=== PATIENT | male | born 1940 | race Caucasian/White ===

== ENCOUNTER → 2016-08-05 | Outpatient (CLI) | payer OTHER, BC ==
[~2016-08-05] MED LIST: ASPCH81 PO; CHOL100010 PO; DIPH50TA10 PO; LORA-741 PO; METR1GEL3; MULT-506 PO; NAPR1TAB9 PO; PSYL55.43; PYRI500T3 PO; TAMS0.4C38 PO; TTR500 PO; WARF-246 PO; WARF7.5T4 PO
--- NOTE | 2016-08-05 14:53 | DIAGNOSTIC IMAGING REPORT ---
SACRUM COCCYX MIN 2 VIEWS CLINICAL HISTORY: W07.XXXA, M53.3 pain. Trauma. COMPARISON STUDY: None FINDINGS: Nondisplaced cortical fracture mid sacrum as well as the sacral coccygeal junction. Sacral foramina are symmetric. Sacroiliac joints are unremarkable. IMPRESSION: Nondisplaced cortical fractures of the mid sacrum as well as sacrococcygeal junction. Electronically signed by: Anish Mallory M.D. 08/05/2016 2:52 PM Dictated Date/Time: 08/05/2016 2:50 PM
== END | disposition home or self-care (01) ==
LOC: C.RAD1850 14:34
PROVIDERS: ATTEND Nurse Practitioner Family
DX: S32.19XA Other fracture of sacrum, initial encounter for closed fracture (principal); W07.XXXA Fall from chair, initial encounter

== ENCOUNTER → 2017-05-16 | Outpatient (CLI) | payer OTHER, BC ==
--- NOTE | 2017-05-16 15:26 | MAMMOGRAPHY REPORT ---
MALE UNILATERAL LEFT DIGITAL SCREENING MAMMOGRAM TOMOSYNTHESIS WITH CAD: 05/16/2017 CLINICAL HISTORY: Routine screening. Patient has no complaints. TECHNIQUE: Breast tomosynthesis in addition to standard 2D mammography was performed. Current study was also evaluated with a Computer Aided Detection (CAD) system. COMPARISON: Comparison is made to exams dated: 08/30/2015 mammogram, 08/23/2014 mammogram, 07/12/2013 ma mmogram, 07/08/2012 mammogram, 07/08/2011 mammogram, and 07/02/2010 mammogram - [facility] er. BREAST COMPOSITION: The tissue of the left breast is predominantly fatty. FINDINGS: The patient is status post right mastectomy. There are no suspicious masses, calcificatio ns, or areas of architectural distortion noted in the left breast. There has been no significant int erval change compared to prior exams. IMPRESSION: ACR BI-RADS CATEGORY 1: NEGATIVE There is no mammographic evidence of malignancy in the left breast. A 1 year screening mammogram is r ecommended. The patient will receive written notification of the results. Approximately 10% of breast cancers are not detected with mammography. A negative mammographic report should not delay biopsy if a clinically suggestive mass is present. Heather Santiago M.D. ah/:05/16/2017 12:24:24 Icd 9 Coder: Ruby MANZO(Dakota)(M), [facility] letter sent: Normal 1/2 BI-RADS Code: ACR BI-RADS Category 1: Negative
== END | disposition home or self-care (01) ==
LOC: C.MAMM 09:33
PROVIDERS: ATTEND Internal Medicine Hematology & Oncology
DX: Z12.31 Encounter for screening mammogram for malignant neoplasm of breast (principal); Z90.11 Acquired absence of right breast and nipple

== ENCOUNTER 2020-06-07 09:26 | Inpatient (IN) ==
[2020-06-07] MEDS ORDERED: METOPROLOL TARTRATE 1 MG/ML VIAL IV ONE ×2 (09:32→10:18)
[2020-06-07] MEDS ORDERED: NITROGLYCERIN 2% OINTMENT 30GM TUBE EXT STA (09:34)
[2020-06-07] MEDS ORDERED: NITROGLYCERIN 2% OINTMENT 30GM TUBE ONE (09:35)
[2020-06-07] MEDS ORDERED: FUROSEMIDE 40 MG/4 ML VIAL IV ONE (09:35)
[2020-06-07 09:47] LABS: Hematocrit (blood only) 39.9 % (42-52); Hemoglobin 13.7 g/dL (14.0-18.0); Mean Corpuscular Hgb Conc 34.3 g/dL (32-36); Mean Platelet Volume 10.5 fL (7.4-10.4); Platelet Count 162 K/uL (130-400); RDW Coefficient of Variation 14.9 % (11.5-14.5); RDW Standard Deviation 55.7 fL (36.4-46.3); Red Blood Count 3.91 M/uL (4.7-6.1); White Blood Count 8.93 K/uL (4.8-10.8)
--- NOTE | 2020-06-07 09:53 | XRay Report ---
XR chest 1V portable HISTORY: 79 years-old Male Dysrhythmia acute shortness of breath COMPARISON: Chest radiographs 05/02/2020 TECHNIQUE: Portable AP view of the chest FINDINGS: Cardiomegaly. Right subclavian Eyiypa-b-Ywxc catheter distal tip terminates within the region of the right atrium. No pneumothorax. Interval development of extensive airspace opacities throughout the ri ght lung with small right pleural effusion. Reticular nodular interstitial opacities are redemonstrat ed bilaterally. Mild left lung base airspace opacities. Degenerative changes of the shoulders and spi ne. IMPRESSION: 1. Cardiomegaly with interval development of asymmetric multifocal airspace opacities throughout the right lung suggestive of asymmetric pulmonary edema versus pneumonia. 2. Bilateral reticular nodular opacities redemonstrated. 3. Small right pleural effusion. ACT 112: Negative or not required by law. The above report was generated using voice recognition software. It may contain grammatical, syntax o r spelling errors. Electronically signed by: Chucho Arredondo M.D. 06/07/2020 9:51 AM
[2020-06-07] MEDS ORDERED: OPTIRAY 320 125ml IV ONE (09:56)
[2020-06-07 10:05] LABS: Albumin Level 2.3 gm/dl (3.4-5.0); BUN Creatinine Ratio 33.9 (10-20); Calcium 9.7 mg/dl (8.5-10.1); Creatinine Clr Calc Pharmacy 35.7 ml/min; Est GFR (African American) 47.2; Est GFR (Non-African American) 40.7; Magnesium 2.4 mg/dl (1.8-2.4); Potassium 4.2 mmol/L (3.5-5.1)
[2020-06-07 10:09] LABS: Basophils # (auto) 0.02 K/uL (0-0.2); Basophils % (auto) 0.2 %; Echinocytes 1+; Eosinophils # (auto) 0.04 K/uL (0-0.5); Eosinophils % (auto) 0.4 %; Immature Granulocytes # (auto) 0.74 K/uL (0.00-0.02); Immature Granulocytes % (auto) 8.3 %; Lymphocytes # (auto) 0.13 K/uL (1.2-3.4); Lymphocytes % (auto) 1.5 %; Monocytes # (auto) 0.02 K/uL (0.11-0.59); Monocytes % (auto) 0.2 %; Neutrophils # (auto) 7.98 K/uL (1.4-6.5); Neutrophils % (auto) 89.4 %; Toxic Granulation 1+; Toxic Vacuolation 1+
[2020-06-07 10:18] LABS: Albumin Globulin Ratio 0.5 (0.9-2); Bilirubin,Total 0.8 mg/dl (0.2-1); Globulin 4.3 gm/dl (2.5-4.0); Thyroid Stimulating Hormone 0.42 uIu/ml (0.300-4.500); Total Protein 6.6 gm/dl (6.4-8.2); Troponin I 0.106 ng/ml (0-0.045)
--- NOTE | 2020-06-07 10:22 | CT Scan Report ---
CT angio chest PE protocol CT DOSE: 292.55 mGy.cm HISTORY: 79 years-old Male with PE. Acute chest pain with shortness of breath. History of breast ca ncer with recent chemotherapy. Hypoxia with atrial fibrillation. History of metastatic breast cancer. TECHNIQUE: Multiple CTA images of the chest were obtained after the intravenous administration of Opt iray 320. Coronal and sagittal MIPS were obtained from the axial data set and were submitted for rev iew. All measurements were obtained according to NASCET criteria. A dose lowering technique was util ized adhering to the principles of ALARA. COMPARISON: Chest radiograph of same day, chest CT 01/05/2020 FINDINGS: CTA: Moderate cardiomegaly. No pericardial effusion. Mild coronary artery calcifications. Thoracic aorta i s not well opacified and therefore difficult to evaluate. No thoracic aortic aneurysm. The pulmonary arterial tree is opacified to the level of the proximal subsegmental branches. The subsegmental branc hes are not well opacified secondary to contrast bolus timing. No filling defects identified. Reflux of contrast into the IVC and hepatic veins. Right subclavian Bqjykd-r-Kity catheter distal tip termin ates within the SVC. CT CHEST: Unremarkable thyroid. Enlarged right hilar lymph nodes measure up to 12 mm. Trace left and small righ t pleural effusions. Multifocal right greater than left bilateral groundglass and alveolar opacities are noted with areas of intralobular septal thickening most pronounced in the right lung. Chronic sub pleural reticulation suggests fibrosis. 10 mm solid nodule of the left upper lobe on image 2 please i s unchanged in size. 1.5 cm subpleural nodule of the left lower lobe on image 154 previously measured 1.2 cm. The additional bilateral pulmonary metastasis are mostly obscured by the aforementioned airs pace disease. Central airways are patent. Mild wall thickening of the distal esophagus. No acute process of the imaged upper abdomen. No acute fracture. Slightly increased size of the scattered sclerotic lesions of the thoracic spine. The 10 mm lesion at T9 previously measured approximately 6-7 mm. The 5 mm T3 lesion previously measured 4 mm. IMPRESSION: 1. Cardiomegaly without pulmonary emboli. 2. Multifocal right greater than left groundglass and consolidative opacities suggests multifocal pne umonia. A component of superimposed asymmetric right-sided pulmonary edema would be difficult to excl ude. 3. Small right and trace left pleural effusions. 4. Pulmonary metastasis redemonstrated. 5. Mild progression of the presumed sclerotic metastasis within the thoracic spine. 6. Mild right hilar adenopathy. ACT 112: Negative or not required by law. The above report was generated using voice recognition software. It may contain grammatical, syntax o r spelling errors. Electronically signed by: Chucho Arredondo M.D. 06/07/2020 10:21 AM
[2020-06-07 10:30] LABS: Base Excess ABG -6.9 mEq/L (-9-1.8); HCO3 ABG 18 mmol/L (19-24); Oxygen Saturation ABG 95.2 % (90-95); PCO2 ABG 36 mmHg (35-46); PO2 ABG 75 mmHg (80-95); pH ABG 7.33 (7.35-7.45)
[2020-06-07 10:34] LABS: Allen Test Pos (Pos)
[2020-06-07 10:47] LABS: INR 1.1 (0.9-1.1); Partial Thromboplastin Time 27.5 Seconds (21.0-31.0)
[2020-06-07] MEDS ORDERED: STAT IV Infusion **Titration per Protocol STA ×3 (10:48→14:49)
[2020-06-07] MEDS ORDERED: dilTIAZem HCl 5 MG/ML 5 ML VIAL IV STA (10:48)
[2020-06-07] MEDS ORDERED: dilTIAZem HCL 125 MG in DEXTROSE 5% 100 ML IV SCH (11:00)
[2020-06-07] MEDS ORDERED: CEFEPIME 2,000 MG in SYRINGE 0 ML IV STA (11:44)
[2020-06-07] MEDS ORDERED: DOXYCYCLINE HYCLATE 100 MG in DEXTROSE 5% 100 ML IV STA (11:45)
[2020-06-07] MEDS ORDERED: VANCOMYCIN HCL 1,250 MG in SODIUM CHLORIDE 0.9% 500 ML IV ONE (11:45)
[2020-06-07] MEDS ORDERED: VANCOMYCIN CONSULT ACTIVE PRN (11:45)
[2020-06-07] MEDS ORDERED: DIGOXIN 500 MCG/2 ML AMP IV ONE (11:47)
--- NOTE | 2020-06-07 11:49 | History & Physical Report ---
Date of Service June 07, 2020 Assessment & Plan (1) Sepsis: Admit to ICU - discussed with Dr. Moore Source multifocal pneumonia. Lactate pending Broad-spectrum antibiotics with vancomycin, cefepime and doxycycline Follow-up blood and sputum cultures (2) Acute respiratory failure with hypoxia: BiPAP 15/10 with FiO2 100% with O2 sats around 90%. Appears stable for the last hour in the emergency room however no significant improvement with improved heart rate and tachypnea concerning for impending respiratory failure requiring intubation. Extensive family discussion with his and the patient and he wishes to be intubated if required therefore will admit to ICU for close monitoring. (3) Multifocal pneumonia: Covid, influenza and RSV PCR negative Broad-spectrum antibiotics with vancomycin, cefepime and doxycycline Urine Legionella antigen pending Sputum culture pending MRSA nasal swab pending (4) Atrial fibrillation with RVR: No significant change after metoprolol 10 mg IV and diltiazem 15 mg IV given in ER. Now improved with diltiazem 10 mg/hr IV drip and digoxin 500 mcg IV Continue metoprolol 5 mg IV every 4 hourly with hold parameters Continue diltiazem IV drip. Will defer continuation of digoxin to ICU team Start IV heparin standard without bolus for anticoagulation (5) Acute congestive heart failure: Clinically hypervolemic suspect due to rapid ventricular rate Lasix 40 mg IV given in ER Discontinue nitro patch Monitor I's and O's, daily weights Will defer further diuretics to ICU team (6) Benign localized prostatic hyperplasia with lower urinary tract symptoms (LUTS): Velazquez catheter Continue tamsulosin 0.4 mg p.o. daily (7) Metastatic cancer: Currently undergoing chemotherapy with Doxil. Last taken on June 01, 2020. (8) Hydronephrosis: Chronic moderatesevere left-sided hydronephrosis. If renal function not improving consider reimaging. (9) DVT prophylaxis: IV heparin drip as above Admission and Anticipated Discharge Date Admission Date: June 07, 2020 History of Present Illness Chief Complaint: Shortness of breath, Atrial fibrillation with rapid ventricular rate Primary Care Provider: Earle Mata Carlos uAgust is an 79-year-old male with metastatic breast cancer on Doxil who presents to the ER via EMS with fatigue, increasing shortness of breath for the last 3 days and with associated mild chest pain. His also notes he has been having a cough for the last month and went to see a pulmonology Dr Pool on May 17 and was given a course of prednisone which he finished without much change in his cough. She denies his cough has become any worse. No fevers or chills. With regards to his metastatic cancer he underwent mastectomy with adjuvant c hemotherapy and radiation in 2006. Subsequently had 5 years of tamoxifen. Recently diagnosed metastatic cancer of the masses in his left breast were biopsied in September 2019. Started on Doxil in January after a cutaneous rash developed after Abraxane chemotherapy. Last dose of Doxil 06/01/2019. He has had 1 of 2 doses COVID-19 vaccination. In the ER he was noted to be in atrial fibrillation with rapid ventricular rate. This was treated with IV metoprolol and diltiazem with reduction of his heart rate from 190s down to 110s. Blood pressure remained stable. Suspected to be hypokalemic and given Lasix 40 mg IV and Nitropaste. He was significantly hypoxic and started on BiPAP 10/ with FiO2 100% and O2 sats 90%. He was referred to medicine for atrial fibrillation with RVR, CHF, hypoxia on BiPAP. Allergies Allergy/AdvReac Type Severity Reaction Status Date / Time mold Allergy Intermediate HIVES Verified 06/07/20 10:31 pollen extracts Allergy Intermediate ITCHING Verified 06/07/20 10:31 No Known Drug Allergies Allergy Verified 06/07/20 10:31 Home Medications Medication Instructions Recorded Confirmed Type lorazepam 0.5 mg tablet 0.5 mg PO DAILY PRN 10/06/19 06/07/20 History multivitamin 1 tab PO DAILY 10/06/19 06/07/20 History naproxen sodium 220 mg capsule 220 mg PO BID PRN 10/06/19 06/07/20 History psyllium husk 3.4 gram/5.4 gram 1 tsp PO QAM 10/06/19 06/07/20 History oral powder tamsulosin 0.4 mg capsule 0.4 mg PO DAILY 10/06/19 06/07/20 History cholecalciferol (vitamin D3) 25 mcg PO DAILY 10/11/19 06/07/20 History [Vitamin D3] vitamin B complex 1 cap PO DAILY 10/11/19 06/07/20 History albuterol sulfate 90 mcg/actuation 1 inh INHALATION QID PRN #18 g 05/17/20 06/07/20 Rx aerosol inhaler gabapentin 300 mg capsule 300 mg PO TID 05/17/20 06/07/20 History prednisone 10 mg tablet See Rx Instructions PO DAILY #100 05/17/20 06/07/20 Rx tab dorzolamide-timolol 1 drp OPB BID 06/07/20 06/07/20 History Past Med/Surg History Medical History Benign localized prostatic hyperplasia with lower urinary tract symptoms (LUTS) Breast cancer in male RIGHT, CHEMO AND RADIATION PREVIOUSLY Breast cancer, male Chest x-ray abnormality Cough Metastatic cancer Nephrolithiasis Surgical History H/O inguinal hernia repair X2 BEFORE 1986 H/O mastectomy RIGHT BREAST 2006--PORT PLACEMENT WELL FOR CHEMO History of hernia surgery Port-A-Cath in place (10/14/19) Port placement. Dr. Ford 10/14/2019 Family History Grandfather (Maternal) Cancer Other Allergies Emphysema, unspecified Heart disease Denies family history of Tuberculosis Diabetes Lung disease Asthma Social History Smoking Status: Former smoker Age Quit Using Tobacco: 48; Years Smoked: 30; Second Hand Exposure: No; Do You Dip or Chew Tobacco: No; Tobacco Cessation Education Requested by Patient: No Hx Alcohol Use: Yes Alcohol type: hard liquor Hx Substance Use: Yes Substance Use Type Other:: in the 1970s Preferred Language: Sami Communication Ability: Effective Medical Office Technologist Required: No Beliefs That Will Affect Care: None marital status: kristi Current Living Situation: Spouse current occupational status: retired Other Information That Helps Us Care for You: No Feels Safe at Home: Yes Safety Concerns: Feels Safe At This Time Assistive Devices: Cane and Oxygen - Continuous Review of Systems Review of Systems: All systems reviewed & are unremarkable except as noted in HPI & below Physical Exam Constitutional: + acute distress (Respiratory) and + ill appearing; + not well nourished Eyes: PERRL, conjunctivae normal, anicteric sclerae ENMT: Mouth: + dry oral mucous membranes Neck: trachea midline Respiratory: + respiratory distress, + labored breathing, + retractions, + uses accessory muscles and + tachypneic; expiratory phase not prolonged Auscultation: + rhonchi (Throughout); no wheezes Cardiovascular: Rate/Rhythm: + tachycardic and + irregularly irregular Heart Sounds: no murmur Vessels: no JVD Gastrointestinal (Abdomen): normal bowel sounds, soft, nontender, no hepatosplenomegaly Skin: no rashes, warm and dry (No areas of cellulitis) Neurologic: moves all extremities and awake; not confused Speech / Cognition: normal speech Psychiatric: A+Ox3, euthymic affect Results & Data Results & Data ([facility]) Vital Signs (Past 12 Hours) Vital Signs Temp Pulse Pulse Resp BP BP Pulse Ox 06/07/20 11:38 166 H 37 H 92 06/07/20 11:25 149 H 45 H 106/71 88 L 06/07/20 11:22 163 H 43 H 138/73 87 L 06/07/20 11:20 157 H 46 H 88 L 06/07/20 11:16 164 H 40 H 151/83 H 87 L 06/07/20 11:10 157 H 42 H 88 L 06/07/20 11:01 160 H 42 H 120/95 92 06/07/20 11:00 169 H 40 H 87 L 06/07/20 10:36 150 H 20 117/81 93 06/07/20 10:22 168 H 18 140/102 H 93 06/07/20 10:07 144 H 20 127/79 94 06/07/20 09:41 36.9 C 160 H 32 H 127/92 70 L 06/07/20 09:40 166 H 36 H 94 06/07/20 09:34 70 L Diagnostic Findings XR chest 1V portable IMPRESSION: 1. Cardiomegaly with interval development of asymmetric multifocal airspace opacities throughout the right lung suggestive of asymmetric pulmonary edema versus pneumonia. 2. Bilateral reticular nodular opacities redemonstrated. 3. Small right pleural effusion. CT angio chest PE protocol IMPRESSION: 1. Cardiomegaly without pulmonary emboli. 2. Multifocal right greater than left groundglass and consolidative opacities suggests multifocal pneumonia. A component of superimposed asymmetric right- sided pulmonary edema would be difficult to exclude. 3. Small right and trace left pleural effusions. 4. Pulmonary metastasis redemonstrated. 5. Mild progression of the presumed sclerotic metastasis within the thoracic spine. 6. Mild right hilar adenopathy. Medications Administered ER medications given: Metoprolol 10 mg IV, 5 mg IV Nitro 2% paste 0.5 inch Lasix 40 mg IV Diltiazem 50 mg IV Digoxin 500 mcg IV ECG Indication: chest pain and SOB/dyspnea Rate (beats per minute): 195 Rhythm: atrial fibrillation Findings: + other (Nonspecific ST abnormality) Comparison ECG Date: from (October 11, 2019) Change: the following changes noted (Atrial fibrillation with RVR is new) Code Status & VTE Plan Code Status Poor prognosis discussed with the patient and his . Discussed high likelihood that patient will deteriorate and currently needing 100% percent oxygen therefore next escalation in care would be intubation if he would want this. The patient indicated he wished to be intubated if he was deteriorate however if he was not improving he would wish to be terminally extubated at that time. DNR in the event of a cardiac arrest. VTE Prophylaxis Plan VTE Prophylaxis will be ordered: Yes Critical Care Time Critical Care Time: Yes Total Critical Care Time: 90 Including management of atrial fibrillation with rapid ventricular rate, multifocal pneumonia, acute respiratory failure, discussions regarding intubation PG Care Time/CCT Total # of Minutes Spent Total Time Spent with Patient: Total time spent is greater than 50% in coordination of care (as documented) at patient's floor/unit and/or counseling patient: Critical Care Time: Yes Total Critical Care Time: 90 Coding Level of Care Code 71492 Initial Inpt Care Lvl 3 Diagnoses Sepsis A41.9 Acute respiratory failure with hypoxia J96.01 Multifocal pneumonia J18.9 Atrial fibrillation with RVR I48.91 Acute congestive heart failure I50.9 Benign localized prostatic hyperplasia with lower urinary tract symptoms (LUTS) N40.1 Metastatic cancer C79.9 Hydronephrosis N13.30 DVT prophylaxis Z29.9 Additional Codes Critical Care Time - Critical Care Time: Yes ([id number])
[2020-06-07] MEDS ORDERED: VANCOMYCIN HCL 1,500 MG in SODIUM CHLORIDE 0.9% 500 ML IV STA (11:55)
[2020-06-07 12:14] LABS: Influenza A virus by PCR Negative (Neg); Influenza B virus by PCR Negative (Neg); RSV by PCR Negative (Neg); SARS CoV2 RNA(COVID-19) InHosp NEGATIVE (Negative)
[2020-06-07 12:18] LABS: Creatine Kinase 45 U/L (39-308)
[2020-06-07 12:35] LABS: C Reactive Protein > 19.00 mg/dl (0-0.29)
--- NOTE | 2020-06-07 13:12 | Critical Care Consultation ---
Date of Consultation June 07, 2020 Assessment & Plan (1) Acute respiratory failure with hypoxia: Reason Critically Ill: 79-year-old male with acute hypoxic respiratory failure with perforated viscus intra-abdominal sepsis and atrial fibrillation with rapid ventricular response PLAN: Neuro: Comfort measures -Dilaudid as needed Resp: Acute hypoxic respiratory failure -Broad-spectrum antibiotics -High flow nasal cannula to minimize intra-abdominal free air -Terminal extubation CV: Atrial fibrillation with rapid ventricular response -Improved with beta-blockade and improvement in hypoxia Fluids/Renal: Acute kidney injury -Gentle hydration ID: Broad-spectrum antibiotics -This will be the extent of our coverage of the perforated viscus GI/Nutrition: Perforated intra-abdominal viscus -Patient and family declined operative intervention Heme: Metastatic breast cancer History upper extremity DVT -Holding heparin as there is no acute venous thromboembolism at this time DVT prophylaxis: Mechanical and pharmacologic prophylaxis contraindicated Endocrine: Vascular access: Peripheral IVs and port Code Status: DNR/DNI Disposition: Comfort measures including antibiotics to treat any infection, I am fearful of a grim prognosis in a matter of hours. Patient exhibits signs of multisystem organ failure. Family present at bedside. I have personally spent 120 minutes of critical care time in the direct management of this patient. This is a life/limb threatening event. This includes time spent evaluating patient, direct bedside care, chart review, placing orders, interpretation of diagnostic studies, discussion with consultants, patient, and/or family members regarding treatment decisions, as well as other required patient management activities. This time is exclusive of all separately billable procedures, and teaching time and separate from and in addition to any other critical care service time. (2) Atrial fibrillation with RVR: (3) Multifocal pneumonia: (4) Sepsis: (5) Metastatic cancer: (6) Breast cancer, male: (7) Perforated abdominal viscus: (8) SAPNA (acute kidney injury): (9) Goals of care, counseling/discussion: History of Present Illness Reason for Consultation: Acute hypoxic respiratory failure Requesting Physician: Yg Elkins Attending Physician: Yg Elkins History of Present Illness Patient is an 79-year-old male with a significant past medical history of metastatic breast cancer who presents today with acute shortness of breath and cough x1 week. In the emergency department he was found to have acute hypoxic respiratory failure and was started on noninvasive ventilation. Was also noted to have acute kidney injury. He was evaluated for admission and felt he would benefit from critical care services as the patient was agreeable with intubation mechanical ventilation should that be required. During my evaluation the patient was saturating in the mid 80s on 100% FiO2 via noninvasive mechanical ventilator and in respiratory distress with tachypnea into the 30s and 40s. Very rapidly we discussed the condition with the patient patient's and he was agreeable with short-term mechanical ventilation should he be improved and did not want tracheostomy or long-term mechanical ventilation beyond 2 weeks. The decision was made to intubate the patient at that time. Chest x-ray following the intubation demonstrated free intra-abdominal air consistent with viscus perforation. In review of the CT scan with radiology there was incidental noting of free air at that time. I discussed this with the patient's , exploratory laparotomy would be of minimal benefit as it will not change the course of his metastatic carcinoma, we will continue broad- spectrum antibiotics proceed with terminal extubation. At this time we are waiting for the daughter to present to bedside prior to extubation as the patient is certainly critically ill and he could ultimately from acute hypoxic respiratory failure in a matter of minutes to hours if he does not have significant improvement. Allergies Allergy/AdvReac Type Severity Reaction Status Date / Time mold Allergy Intermediate HIVES Verified 06/07/20 10:31 pollen extracts Allergy Intermediate ITCHING Verified 06/07/20 10:31 No Known Drug Allergies Allergy Verified 06/07/20 10:31 Home Medications Medication Instructions Recorded Confirmed Type lorazepam 0.5 mg tablet 0.5 mg PO DAILY PRN 10/06/19 06/07/20 History multivitamin 1 tab PO DAILY 10/06/19 06/07/20 History naproxen sodium 220 mg capsule 220 mg PO BID PRN 10/06/19 06/07/20 History psyllium husk 3.4 gram/5.4 gram 1 tsp PO QAM 10/06/19 06/07/20 History oral powder tamsulosin 0.4 mg capsule 0.4 mg PO DAILY 10/06/19 06/07/20 History cholecalciferol (vitamin D3) 25 mcg PO DAILY 10/11/19 06/07/20 History [Vitamin D3] vitamin B complex 1 cap PO DAILY 10/11/19 06/07/20 History albuterol sulfate 90 mcg/actuation 1 inh INHALATION QID PRN #18 g 05/17/20 06/07/20 Rx aerosol inhaler gabapentin 300 mg capsule 300 mg PO TID 05/17/20 06/07/20 History prednisone 10 mg tablet See Rx Instructions PO DAILY #100 05/17/20 06/07/20 Rx tab dorzolamide-timolol 1 drp OPB BID 06/07/20 06/07/20 History Patient History Medical History Benign localized prostatic hyperplasia with lower urinary tract symptoms (LUTS) Breast cancer in male RIGHT, CHEMO AND RADIATION PREVIOUSLY Breast cancer, male Chest x-ray abnormality Cough Metastatic cancer Nephrolithiasis Surgical History H/O inguinal hernia repair X2 BEFORE 1986 H/O mastectomy RIGHT BREAST 2006--PORT PLACEMENT WELL FOR CHEMO History of hernia surgery Port-A-Cath in place (10/14/19) Port placement. Dr. 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 Obvious distress. Skin: Warm, dry, Head: Atraumatic Ears, nose, mouth and throat: Obscured by the noninvasive CPAP mask Cardiovascular: Normal peripheral perfusion, tachycardia Respiratory: Tachypnea Gastrointestinal: Non distended Musculoskeletal: No deformity Results & Data Results & Data ([facility]) Vital Signs (Past 12 Hours) Vital Signs Temp Pulse Pulse Resp BP BP Pulse Ox 06/07/20 12:40 100 H 46 H 90 06/07/20 12:31 100 H 37 H 131/84 93 06/07/20 12:30 99 H 39 H 92 06/07/20 12:20 102 H 32 H 92 06/07/20 12:16 99 H 38 H 120/78 89 L 06/07/20 12:10 98 H 45 H 92 06/07/20 12:00 98 H 46 H 122/82 86 L 06/07/20 11:54 175 H 39 H 103/75 90 06/07/20 11:50 175 H 41 H 90 06/07/20 11:46 165 H 40 H 115/73 89 L 06/07/20 11:40 165 H 46 H 90 06/07/20 11:38 166 H 37 H 92 06/07/20 11:30 170 H 42 H 115/72 87 L 06/07/20 11:25 149 H 45 H 106/71 88 L 06/07/20 11:22 163 H 43 H 138/73 87 L 06/07/20 11:20 157 H 46 H 88 L 06/07/20 11:16 164 H 40 H 151/83 H 87 L 06/07/20 11:10 157 H 42 H 88 L 06/07/20 11:01 160 H 42 H 120/95 92 06/07/20 11:00 169 H 40 H 87 L 06/07/20 10:36 150 H 20 117/81 93 06/07/20 10:22 168 H 18 140/102 H 93 06/07/20 10:07 144 H 20 127/79 94 06/07/20 09:41 36.9 C 160 H 32 H 127/92 70 L 06/07/20 09:40 166 H 36 H 94 06/07/20 09:34 70 L Laboratory Results 06/07/20 06/07/20 06/07/20 Range/Units 15:47 14:19 14:07 WBC (4.8-10.8) K/uL RBC (4.7-6.1) M/uL Hgb (14.0-18.0) g/dL POC Hgb 14.6 (14.0-18.0) g/dl Hct (42-52) % POC Hct 43 (42-52) % MCV (80-100) fL MCH (25-34) pg MCHC (32-36) g/dL RDW Std Deviation (36.4-46.3) fL RDW Coeff of Winter (11.5-14.5) % Plt Count (130-400) K/uL MPV (7.4-10.4) fL Immature Gran % (Auto) % Neut % (Auto) % Lymph % (Auto) % Sebastian % (Auto) % Eos % (Auto) % Baso % (Auto) % Neut # (Auto) (1.4-6.5) K/uL Lymph # (Auto) (1.2-3.4) K/uL Sebastian # (Auto) (0.11-0.59) K/uL Eos # (Auto) (0-0.5) K/uL Baso # (Auto) (0-0.2) K/uL Immature Gran # (Auto) (0.00-0.02) K/uL Toxic Granulation Toxic Vacuolation Echinocytes PT (9.0-12.0) Seconds INR (0.9-1.1) APTT (21.0-31.0) Seconds PTT Ratio Sample Site R Radial POC pH 7.32 L (7.35-7.45) POC pCO2 36 (35-46) mmHg POC pO2 52 L (80-95) mmHg POC HCO3 19 (19-24) faheem/L POC Total CO2 20 L (24-31) mmol/L POC Base Excess -7.0 (-9-1.8) faheem/L ABG pH (7.35-7.45) ABG pH (Temp Correct) 7.319 L (7.35-7.45) ABG pCO2 (35-46) mmHg ABG pCO2 (Temp Corrct 36 (35-46) mmHg ABG pO2 (80-95) mmHg POC ABG pO2 at Pt Temp 52 ABG HCO3 (19-24) mmol/L POC ABG O2 Sat 84.0 L (90-95) % ABG O2 Saturation (90-95) % ABG Base Excess (-9-1.8) mEq/L Dennis Test NA (Pos) Barometric Pressure mm/Hg Oxygen Given O2 Delivery Device BIPAP POC FiO2 100 % IPAP 15 POC Sodium 137 (135-144) mmol/L Sodium (136-145) mmol/L POC Potassium 4.1 (3.3-5.0) mmol/L Potassium (3.5-5.1) mmol/L Chloride (98-107) mmol/L Carbon Dioxide (21-32) mmol/L Anion Gap (3-11) BUN (7-18) mg/dl Creatinine (0.6-1.4) mg/dl Est Cr Clr Drug Dosing ml/min Est GFR ( Amer) Est GFR (Non-Af Amer) BUN/Creatinine Ratio (10-20) Glucose (70-99) mg/dl Lactate 4.4 H* (0.4-2.0) mmol/L Calcium (8.5-10.1) mg/dl Magnesium (1.8-2.4) mg/dl Total Bilirubin (0.2-1) mg/dl AST (15-37) U/L ALT (12-78) U/L Alkaline Phosphatase (45-117) U/L Lactate Dehydrogenase (87-241) U/L Total Creatine Kinase (39-308) U/L Troponin I (0-0.045) ng/ml C-Reactive Protein (0-0.29) mg/dl Total Protein (6.4-8.2) gm/dl Albumin (3.4-5.0) gm/dl Globulin (2.5-4.0) gm/dl Albumin/Globulin Ratio (0.9-2) Procalcitonin (0-0.5) ng/ml TSH (0.300-4.500) uIu/ml Nasal Screen MRSA (PCR) Pending COVID-19 Eval Order SARS-CoV-2 (PCR) (Negative) Influenza Type A (PCR) (Neg) Influenza Type B (PCR) (Neg) RSV (RT-PCR) (Neg) 06/07/20 06/07/20 06/07/20 Range/Units 12:13 11:15 11:15 WBC (4.8-10.8) K/uL RBC (4.7-6.1) M/uL Hgb (14.0-18.0) g/dL POC Hgb (14.0-18.0) g/dl Hct (42-52) % POC Hct (42-52) % MCV (80-100) fL MCH (25-34) pg MCHC (32-36) g/dL RDW Std Deviation (36.4-46.3) fL RDW Coeff of Winter (11.5-14.5) % Plt Count (130-400) K/uL MPV (7.4-10.4) fL Immature Gran % (Auto) % Neut % (Auto) % Lymph % (Auto) % Sebastian % (Auto) % Eos % (Auto) % Baso % (Auto) % Neut # (Auto) (1.4-6.5) K/uL Lymph # (Auto) (1.2-3.4) K/uL Sebastian # (Auto) (0.11-0.59) K/uL Eos # (Auto) (0-0.5) K/uL Baso # (Auto) (0-0.2) K/uL Immature Gran # (Auto) (0.00-0.02) K/uL Toxic Granulation Toxic Vacuolation Echinocytes PT (9.0-12.0) Seconds INR (0.9-1.1) APTT (21.0-31.0) Seconds PTT Ratio Sample Site POC pH (7.35-7.45) POC pCO2 (35-46) mmHg POC pO2 (80-95) mmHg POC HCO3 (19-24) faheem/L POC Total CO2 (24-31) mmol/L POC Base Excess (-9-1.8) faheem/L ABG pH (7.35-7.45) ABG pH (Temp Correct) (7.35-7.45) ABG pCO2 (35-46) mmHg ABG pCO2 (Temp Corrct (35-46) mmHg ABG pO2 (80-95) mmHg POC ABG pO2 at Pt Temp ABG HCO3 (19-24) mmol/L POC ABG O2 Sat (90-95) % ABG O2 Saturation (90-95) % ABG Base Excess (-9-1.8) mEq/L Dennis Test (Pos) Barometric Pressure mm/Hg Oxygen Given O2 Delivery Device POC FiO2 % IPAP POC Sodium (135-144) mmol/L Sodium (136-145) mmol/L POC Potassium (3.3-5.0) mmol/L Potassium (3.5-5.1) mmol/L Chloride (98-107) mmol/L Carbon Dioxide (21-32) mmol/L Anion Gap (3-11) BUN (7-18) mg/dl Creatinine (0.6-1.4) mg/dl Est Cr Clr Drug Dosing ml/min Est GFR ( Amer) Est GFR (Non-Af Amer) BUN/Creatinine Ratio (10-20) Glucose (70-99) mg/dl Lactate 3.8 H* (0.4-2.0) mmol/L Calcium (8.5-10.1) mg/dl Magnesium (1.8-2.4) mg/dl Total Bilirubin (0.2-1) mg/dl AST (15-37) U/L ALT (12-78) U/L Alkaline Phosphatase (45-117) U/L Lactate Dehydrogenase (87-241) U/L Total Creatine Kinase (39-308) U/L Troponin I (0-0.045) ng/ml C-Reactive Protein (0-0.29) mg/dl Total Protein (6.4-8.2) gm/dl Albumin (3.4-5.0) gm/dl Globulin (2.5-4.0) gm/dl Albumin/Globulin Ratio (0.9-2) Procalcitonin (0-0.5) ng/ml TSH (0.300-4.500) uIu/ml Nasal Screen MRSA (PCR) COVID-19 Eval Order [facility]Rsv at [facility] SARS-CoV-2 (PCR) NEGATIVE (Negative) Influenza Type A (PCR) Negative (Neg) Influenza Type B (PCR) Negative (Neg) RSV (RT-PCR) Negative (Neg) 06/07/20 06/07/20 06/07/20 Range/Units 10:19 10:19 10:17 WBC (4.8-10.8) K/uL RBC (4.7-6.1) M/uL Hgb (14.0-18.0) g/dL POC Hgb (14.0-18.0) g/dl Hct (42-52) % POC Hct (42-52) % MCV (80-100) fL MCH (25-34) pg MCHC (32-36) g/dL RDW Std Deviation (36.4-46.3) fL RDW Coeff of Winter (11.5-14.5) % Plt Count (130-400) K/uL MPV (7.4-10.4) fL Immature Gran % (Auto) % Neut % (Auto) % Lymph % (Auto) % Sebastian % (Auto) % Eos % (Auto) % Baso % (Auto) % Neut # (Auto) (1.4-6.5) K/uL Lymph # (Auto) (1.2-3.4) K/uL Sebastian # (Auto) (0.11-0.59) K/uL Eos # (Auto) (0-0.5) K/uL Baso # (Auto) (0-0.2) K/uL Immature Gran # (Auto) (0.00-0.02) K/uL Toxic Granulation Toxic Vacuolation Echinocytes PT (9.0-12.0) Seconds INR (0.9-1.1) APTT (21.0-31.0) Seconds PTT Ratio Sample Site POC pH (7.35-7.45) POC pCO2 (35-46) mmHg POC pO2 (80-95) mmHg POC HCO3 (19-24) faheem/L POC Total CO2 (24-31) mmol/L POC Base Excess (-9-1.8) faheem/L ABG pH 7.33 L (7.35-7.45) ABG pH (Temp Correct) (7.35-7.45) ABG pCO2 36 (35-46) mmHg ABG pCO2 (Temp Corrct (35-46) mmHg ABG pO2 75 L (80-95) mmHg POC ABG pO2 at Pt Temp ABG HCO3 18 L (19-24) mmol/L POC ABG O2 Sat (90-95) % ABG O2 Saturation 95.2 H (90-95) % ABG Base Excess -6.9 (-9-1.8) mEq/L Dennis Test Pos (Pos) Barometric Pressure 730.2 mm/Hg Oxygen Given 90% O2 Delivery Device POC FiO2 % IPAP POC Sodium (135-144) mmol/L Sodium (136-145) mmol/L POC Potassium (3.3-5.0) mmol/L Potassium (3.5-5.1) mmol/L Chloride (98-107) mmol/L Carbon Dioxide (21-32) mmol/L Anion Gap (3-11) BUN (7-18) mg/dl Creatinine (0.6-1.4) mg/dl Est Cr Clr Drug Dosing ml/min Est GFR ( Amer) Est GFR (Non-Af Amer) BUN/Creatinine Ratio (10-20) Glucose (70-99) mg/dl Lactate (0.4-2.0) mmol/L Calcium (8.5-10.1) mg/dl Magnesium (1.8-2.4) mg/dl Total Bilirubin (0.2-1) mg/dl AST (15-37) U/L ALT (12-78) U/L Alkaline Phosphatase (45-117) U/L Lactate Dehydrogenase 301 H (87-241) U/L Total Creatine Kinase 45 (39-308) U/L Troponin I (0-0.045) ng/ml C-Reactive Protein > 19.00 H (0-0.29) mg/dl Total Protein (6.4-8.2) gm/dl Albumin (3.4-5.0) gm/dl Globulin (2.5-4.0) gm/dl Albumin/Globulin Ratio (0.9-2) Procalcitonin (0-0.5) ng/ml TSH (0.300-4.500) uIu/ml Nasal Screen MRSA (PCR) COVID-19 Eval Order SARS-CoV-2 (PCR) (Negative) Influenza Type A (PCR) (Neg) Influenza Type B (PCR) (Neg) RSV (RT-PCR) (Neg) 06/07/20 06/07/20 06/07/20 Range/Units 10:17 09:30 09:30 WBC (4.8-10.8) K/uL RBC (4.7-6.1) M/uL Hgb (14.0-18.0) g/dL POC Hgb (14.0-18.0) g/dl Hct (42-52) % POC Hct (42-52) % MCV (80-100) fL MCH (25-34) pg MCHC (32-36) g/dL RDW Std Deviation (36.4-46.3) fL RDW Coeff of Winter (11.5-14.5) % Plt Count (130-400) K/uL MPV (7.4-10.4) fL Immature Gran % (Auto) % Neut % (Auto) % Lymph % (Auto) % Sebastian % (Auto) % Eos % (Auto) % Baso % (Auto) % Neut # (Auto) (1.4-6.5) K/uL Lymph # (Auto) (1.2-3.4) K/uL Sebastian # (Auto) (0.11-0.59) K/uL Eos # (Auto) (0-0.5) K/uL Baso # (Auto) (0-0.2) K/uL Immature Gran # (Auto) (0.00-0.02) K/uL Toxic Granulation Toxic Vacuolation Echinocytes PT 11.0 (9.0-12.0) Seconds INR 1.1 (0.9-1.1) APTT 27.5 (21.0-31.0) Seconds PTT Ratio 1.0 Sample Site POC pH (7.35-7.45) POC pCO2 (35-46) mmHg POC pO2 (80-95) mmHg POC HCO3 (19-24) faheem/L POC Total CO2 (24-31) mmol/L POC Base Excess (-9-1.8) faheem/L ABG pH (7.35-7.45) ABG pH (Temp Correct) (7.35-7.45) ABG pCO2 (35-46) mmHg ABG pCO2 (Temp Corrct (35-46) mmHg ABG pO2 (80-95) mmHg POC ABG pO2 at Pt Temp ABG HCO3 (19-24) mmol/L POC ABG O2 Sat (90-95) % ABG O2 Saturation (90-95) % ABG Base Excess (-9-1.8) mEq/L Dennis Test (Pos) Barometric Pressure mm/Hg Oxygen Given O2 Delivery Device POC FiO2 % IPAP POC Sodium (135-144) mmol/L Sodium 136 (136-145) mmol/L POC Potassium (3.3-5.0) mmol/L Potassium 4.2 (3.5-5.1) mmol/L Chloride 104 (98-107) mmol/L Carbon Dioxide 22 (21-32) mmol/L Anion Gap 10.0 (3-11) BUN 53 H (7-18) mg/dl Creatinine 1.57 H (0.6-1.4) mg/dl Est Cr Clr Drug Dosing 35.7 ml/min Est GFR ( Amer) 47.2 Est GFR (Non-Af Amer) 40.7 BUN/Creatinine Ratio 33.9 H (10-20) Glucose 128 H (70-99) mg/dl Lactate (0.4-2.0) mmol/L Calcium 9.7 (8.5-10.1) mg/dl Magnesium 2.4 (1.8-2.4) mg/dl Total Bilirubin 0.8 (0.2-1) mg/dl AST 33 (15-37) U/L ALT 42 (12-78) U/L Alkaline Phosphatase 159 H (45-117) U/L Lactate Dehydrogenase (87-241) U/L Total Creatine Kinase (39-308) U/L Troponin I 0.106 H* (0-0.045) ng/ml C-Reactive Protein (0-0.29) mg/dl Total Protein 6.6 (6.4-8.2) gm/dl Albumin 2.3 L (3.4-5.0) gm/dl Globulin 4.3 H (2.5-4.0) gm/dl Albumin/Globulin Ratio 0.5 L (0.9-2) Procalcitonin 16.56 H (0-0.5) ng/ml TSH 0.420 (0.300-4.500) uIu/ml Nasal Screen MRSA (PCR) COVID-19 Eval Order SARS-CoV-2 (PCR) (Negative) Influenza Type A (PCR) (Neg) Influenza Type B (PCR) (Neg) RSV (RT-PCR) (Neg) 06/07/20 Range/Units 09:30 WBC 8.93 (4.8-10.8) K/uL RBC 3.91 L (4.7-6.1) M/uL Hgb 13.7 L (14.0-18.0) g/dL POC Hgb (14.0-18.0) g/dl Hct 39.9 L (42-52) % POC Hct (42-52) % MCV 102.0 H (80-100) fL MCH 35.0 H (25-34) pg MCHC 34.3 (32-36) g/dL RDW Std Deviation 55.7 H (36.4-46.3) fL RDW Coeff of Winter 14.9 H (11.5-14.5) % Plt Count 162 (130-400) K/uL MPV 10.5 H (7.4-10.4) fL Immature Gran % (Auto) 8.3 % Neut % (Auto) 89.4 % Lymph % (Auto) 1.5 % Sebastian % (Auto) 0.2 % Eos % (Auto) 0.4 % Baso % (Auto) 0.2 % Neut # (Auto) 7.98 H (1.4-6.5) K/uL Lymph # (Auto) 0.13 L (1.2-3.4) K/uL Sebastian # (Auto) 0.02 L (0.11-0.59) K/uL Eos # (Auto) 0.04 (0-0.5) K/uL Baso # (Auto) 0.02 (0-0.2) K/uL Immature Gran # (Auto) 0.74 H (0.00-0.02) K/uL Toxic Granulation 1+ Toxic Vacuolation 1+ Echinocytes 1+ PT (9.0-12.0) Seconds INR (0.9-1.1) APTT (21.0-31.0) Seconds PTT Ratio Sample Site POC pH (7.35-7.45) POC pCO2 (35-46) mmHg POC pO2 (80-95) mmHg POC HCO3 (19-24) faheem/L POC Total CO2 (24-31) mmol/L POC Base Excess (-9-1.8) faheem/L ABG pH (7.35-7.45) ABG pH (Temp Correct) (7.35-7.45) ABG pCO2 (35-46) mmHg ABG pCO2 (Temp Corrct (35-46) mmHg ABG pO2 (80-95) mmHg POC ABG pO2 at Pt Temp ABG HCO3 (19-24) mmol/L POC ABG O2 Sat (90-95) % ABG O2 Saturation (90-95) % ABG Base Excess (-9-1.8) mEq/L Dennis Test (Pos) Barometric Pressure mm/Hg Oxygen Given O2 Delivery Device POC FiO2 % IPAP POC Sodium (135-144) mmol/L Sodium (136-145) mmol/L POC Potassium (3.3-5.0) mmol/L Potassium (3.5-5.1) mmol/L Chloride (98-107) mmol/L Carbon Dioxide (21-32) mmol/L Anion Gap (3-11) BUN (7-18) mg/dl Creatinine (0.6-1.4) mg/dl Est Cr Clr Drug Dosing ml/min Est GFR ( Amer) Est GFR (Non-Af Amer) BUN/Creatinine Ratio (10-20) Glucose (70-99) mg/dl Lactate (0.4-2.0) mmol/L Calcium (8.5-10.1) mg/dl Magnesium (1.8-2.4) mg/dl Total Bilirubin (0.2-1) mg/dl AST (15-37) U/L ALT (12-78) U/L Alkaline Phosphatase (45-117) U/L Lactate Dehydrogenase (87-241) U/L Total Creatine Kinase (39-308) U/L Troponin I (0-0.045) ng/ml C-Reactive Protein (0-0.29) mg/dl Total Protein (6.4-8.2) gm/dl Albumin (3.4-5.0) gm/dl Globulin (2.5-4.0) gm/dl Albumin/Globulin Ratio (0.9-2) Procalcitonin (0-0.5) ng/ml TSH (0.300-4.500) uIu/ml Nasal Screen MRSA (PCR) COVID-19 Eval Order SARS-CoV-2 (PCR) (Negative) Influenza Type A (PCR) (Neg) Influenza Type B (PCR) (Neg) RSV (RT-PCR) (Neg) Diagnostic Findings [facility], [phone] XRay Report Patient: NINA OROURKE GAdmit Date: 06/07/20MR#: [id number]Acct ID:[id number]: Date: 1940[facility] Zip: [place], [place] [address]Zyz: [id number]: 1ESex: MRoom/Bed: [id number] Phy: Yg Elkins, CAMILAiagnosis: ACUTE HYPOXIC RESP FAILUREPri Phy: Earle Mata, JACQUEService Date: 06/07/20Fam Phy:Interpreting Phy: [facility] Phy: Yg Elkins MD Ordering Phy: Irvin Moore D.O. cc: ~ SINGLE VIEW CHEST CLINICAL HISTORY: Respiratory failure. Intubation. FINDINGS: An AP, portable, upright chest radiograph is compared to chest x-ray and chest CT dated 06/07/2020. An endotracheal tube has been placed. The tip projects approximately 3 cm above the carol. An enteric tube has been placed. This projects below the diaphragm of the stomach. A right subclavian central venous infusion port is unchanged in position. The heart is enlarged. There is multifocal airspace consolidation throughout both lungs, nearly confluent throughout the right lung. Trace pleural effusions are noted. No pneumothorax is seen. The skeletal structures are osteopenic. The bony thorax is grossly intact. Intraperitoneal free air is seen below the diaphragm. IMPRESSION: 1. Endotracheal and enteric tubes have been placed as above. 2. Intra-abdominal air is seen below the diaphragm. This is concerning for visceral perforation. Clinical correlation will be essential. 3. Multifocal airspace consolidation is throughout both lungs, right significantly greater than left is similar to previous. 4. Small pleural effusions. 5. Cardiomegaly. CT CHEST: Unremarkable thyroid. Enlarged right hilar lymph nodes measure up to 12 mm. Trace left and small right pleural effusions. Multifocal right greater than left bilateral groundglass and alveolar opacities are noted with areas of intralobular septal thickening most pronounced in the right lung. Chronic subpleural reticulation suggests fibrosis. 10 mm solid nodule of the left upper lobe on image 2 please is unchanged in size. 1.5 cm subpleural nodule of the left lower lobe on image 154 previously measured 1.2 cm. The additional bilateral pulmonary metastasis are mostly obscured by the aforementioned airspace disease. Central airways are patent. Mild wall thickening of the distal esophagus. No acute process of the imaged upper abdomen. No acute fracture. Slightly increased size of the scattered sclerotic lesions of the thoracic spine. The 10 mm lesion at T9 previously measured approximately 6-7 mm. The 5 mm T3 lesion previously measured 4 mm. IMPRESSION: 1. Cardiomegaly without pulmonary emboli. 2. Multifocal right greater than left groundglass and consolidative opacities suggests multifocal pneumonia. A component of superimposed asymmetric right- sided pulmonary edema would be difficult to exclude. 3. Small right and trace left pleural effusions. 4. Pulmonary metastasis redemonstrated. 5. Mild progression of the presumed sclerotic metastasis within the thoracic spine. 6. Mild right hilar adenopathy. Coding Level of Care Code Critical Care ea addt'l 30 min Diagnoses Acute respiratory failure with hypoxia J96.01 Atrial fibrillation with RVR I48.91 Multifocal pneumonia J18.9 Sepsis A41.9; R65.20; N17.9 Sepsis type: sepsis due to unspecified organism Sepsis acute organ dysfunction status: with acute organ dysfunction Severe sepsis acute organ dysfunction type: acute renal failure Acute renal failure type: unspecified Severe sepsis shock status: without septic shock Metastatic cancer C78.00 Area of secondary neoplastic involvement: respiratory structure Respiratory structure secondary neoplasm location: metastatic to lung Laterality: unspecified laterality Breast cancer, male C50.289 Breast location: unspecified site of breast Estrogen receptor status: unspecified Laterality: unspecified laterality Perforated abdominal viscus R19.8 SAPNA (acute kidney injury) N17.9 Goals of care, counseling/discussion Z71.89 (1) Sepsis Sepsis type: sepsis due to unspecified organism Sepsis acute organ dysfunction status: with acute organ dysfunction Severe sepsis acute organ dysfunction type: acute renal failure Acute renal failure type: unspecified Severe sepsis shock status: without septic shock Qualified Code(s): A41.9 - Sepsis, unspecified organism; R65.20 - Severe sepsis without septic shock; N17.9 - Acute kidney failure, unspecified (2) Metastatic cancer Area of secondary neoplastic involvement: respiratory structure Respiratory structure 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
[2020-06-07] MEDS ORDERED: LORazepam 0.5 MG TAB PO PRN (14:02)
[2020-06-07] MEDS ORDERED: HEPARIN SODIUM/DEXTROSE 25,000 UNITS/500 ML BAG IV SCH (14:02)
[2020-06-07] MEDS ORDERED: ICU PROTOCOL FOR HYPERGLYCEMIA PRN (14:02)
[2020-06-07 14:21] LABS: iSTAT Art Bld Gas pCO2 Correct 36 mmHg (35-46); iSTAT Art Bld Gas pH Corrected 7.319 (7.35-7.45); iSTAT Arterial Blood Gas HCO3 19 meg/L (19-24); iSTAT Arterial Blood Gas pCO2 36 mmHg (35-46); iSTAT Arterial Blood Gas pH 7.32 (7.35-7.45); iSTAT Arterial Blood Gas pO2 52 mmHg (80-95); iSTAT Arterial Blood Gas pO2 C 52; iSTAT Carbon Dioxide 20 mmol/L (24-31); iSTAT FiO2 100 %; iSTAT Hematocrit 43 % (42-52); iSTAT Hemoglobin 14.6 g/dl (14.0-18.0); iSTAT Potassium 4.1 mmol/L (3.3-5.0); iSTAT Site R Radial; iSTAT Sodium 137 mmol/L (135-144)
[2020-06-07] MEDS ORDERED: RAPID SEQUENCE INDUCTION BAG ONE (14:21)
[2020-06-07] MEDS ORDERED: PROPOFOL IV EMULSION 10 MG/ML 100 ML VIAL IV ONE (14:27)
[2020-06-07] MEDS ORDERED: Heparin IV Adult Wt-Based Standard *NO* Bolus Protocol IV SCH (14:30)
--- NOTE | 2020-06-07 14:32 | Pharmacy Report ---
Pharmacy Abx Dose Short Note - Date of Service June 07, 2020 - Assessment & Plan Assessment 79 year old M admitted for sepsis, multifocal pna, SAPNA, a fib RVR w/ ADHF Pharmacy is consulted to dose VANCOMYCIN IV + h/o breast CA s/p mastectomy w/ a-port in place for chemotherapy - currently non-neutropenic, uncertain of oncology regimen SCr elevated to 1.57 today (baseline ~0.9-1), currently non-hypotensive + procal elevation, + lactic acidosis, + tachypnea, + hypoxemia nasal swab for MRSA pending, BLCXs and Legionella UA also pending Plan Vancomycin * 1500mg (~22mg/kg) loading dose given in ED * Patient is not a candidate for AUC dosing method due to SAPNA and likely changing renal fxn * Initial maint dose: 1000mg (~15mg/kg) IV Q 24 hrs * Goal trough level for sepsis / pulm infxn : 15 to 20 mcg/mL * Will check trough level w/ 3rd maint dose if therapy to continue Pharmacy will continue to follow and will adjust dose/frequency as necessary. Thank you.
[2020-06-07] MEDS ORDERED: PROPOFOL BOLUS FROM BAG IV PRN (14:34)
[2020-06-07] MEDS ORDERED: propofoL 1,000 MG/100 ML VIAL IV SCH (14:45)
[2020-06-07] MEDS ORDERED: fentaNYL DRIP 1,250 MCG/250 ML BAG IV SCH (14:45)
[2020-06-07] MEDS ORDERED: PHENYLEPHRINE (STAT use only) 10MG in D5W 250 ML IV STA (14:52)
--- NOTE | 2020-06-07 15:00 | XRay Report ---
SINGLE VIEW CHEST CLINICAL HISTORY: Respiratory failure. Intubation. FINDINGS: An AP, portable, upright chest radiograph is compared to chest x-ray and chest CT dated 06/07. An endotracheal tube has been placed. The tip projects approximately 3 cm above the carol. An enteric tube has been placed. This projects below the diaphragm of the stomach. A right subclavian c entral venous infusion port is unchanged in position. The heart is enlarged. There is multifocal airs pace consolidation throughout both lungs, nearly confluent throughout the right lung. Trace pleural e ffusions are noted. No pneumothorax is seen. The skeletal structures are osteopenic. The bony thorax is grossly intact. Intraperitoneal free air is seen below the diaphragm. IMPRESSION: 1. Endotracheal and enteric tubes have been placed as above. 2. Intraperitoneal fluid is seen below the diaphragm. This is concerning for visceral perforation. Cl inical correlation will be essential. 3. Multifocal airspace consolidation is throughout both lungs, right significantly greater than left is similar to previous. 4. Small pleural effusions. 5. Cardiomegaly. ACT 112: Negative or not required by law. Electronically signed by: Santosh Verduzco M.D. 06/07/2020 2:59 PM
[2020-06-07] MEDS ORDERED: HYDROCORTISONE SOD 50 MG in SYRINGE 0 ML IV ONE (15:15)
--- NOTE | 2020-06-07 15:27 | Electrocardiogram Report ---
Test Reason : Blood Pressure : / mmHG Vent. Rate : 195 BPM Atrial Rate : 103 BPM P-R Int : 000 ms QRS Dur : 074 ms QT Int : 198 ms P-R-T Axes : 000 -01 010 degrees QTc Int : 356 ms Poor data quality, interpretation may be adversely affected Atrial fibrillation with rapid ventricular response Nonspecific ST abnormality Abnormal ECG When compared with ECG of 11-OCT-2019 10:06, Significant changes have occurred Confirmed by Harrison Brito ([id number]) on 06/07/2020 3:26:52 PM Referred By: Confirmed By:Harrison Brito
--- NOTE | 2020-06-07 15:32 | Electrocardiogram Report ---
Test Reason : Blood Pressure : / mmHG Vent. Rate : 099 BPM Atrial Rate : 099 BPM P-R Int : 200 ms QRS Dur : 086 ms QT Int : 328 ms P-R-T Axes : 006 000 037 degrees QTc Int : 420 ms Normal sinus rhythm Normal ECG When compared with ECG of 07-JUN-2020 09:29, (unconfirmed) Significant changes have occurred Confirmed by Harrison Brito ([id number]) on 06/07/2020 3:32:22 PM Referred By: REFERRED SELF Confirmed By:Harrison Brito
[2020-06-07] MEDS: METOPROLOL TARTRATE 1 MG/ML VIAL IV, SCH ×2 (15:43→16:19)
[2020-06-07] MEDS ORDERED: PHENYLEPHRINE HCL 20 MG in DEXTROSE 5% 500 ML IV SCH (15:45)
[2020-06-07] MEDS ORDERED: ATROPINE SULFATE 1% OP SOLN 5 ML BTL SL PRN (16:19)
[2020-06-07] MEDS ORDERED: MIDAZOLAM HCL 1 MG/ML 2ML VIAL IV PRN (16:19)
--- NOTE | 2020-06-07 16:29 | Procedure Note ---
Procedure Note Date of Service June 07, 2020 Procedure Date: [noted above] Procedure: Endotracheal intubation Pre-procedure Diagnosis: Acute hypoxic respiratory failure Post-procedure Diagnosis: same as above Prior to Procedure: Informed Consent: Discussed risks and benefits and patient and are agreeable with intubation and short-term mechanical ventilation Attending Staff: Diego Moore DO The identity of the patient was confirmed and a bedside time out was performed. Description of Procedure: Patient was evaluated and required intubation for impending respiratory failure. The patient was prepared in the usual fashion. A 3 video laryngoscope was used. A 8 mm inner diameter endotrachial tube was placed endotracheally to 25 cm at the teeth. A grade 1 view was obtained. The endotracheal tube was noted to pass through the vocal cords. Chest rise was bilateral. Bilateral breath sounds were heard without air sounds in the abdomen. Mist was noted in the endotracheal tube. End-tidal CO2 measurement was positive. Chest x-ray shows proper endotracheal tube placement, as well as free intra-abdominal air Complications: Patient's oxygen saturation was 85 he desaturated to 81% and it took seconds for intubation and he slowly recovered. Findings: Not applicable Specimens: Not applicable Estimated blood loss: Zero Coding CPT Codes Resuscitation - Resuscitation: [id number] Endotracheal Intubation, emergency ([id number]) [facility] [place] Codes (Charges) Resuscitation Resuscitation: [id number] Endotracheal Intubation, emergency
--- NOTE | 2020-06-07 17:15 | Consultation ---
Date of Consultation June 07, 2020 Assessment & Plan (1) Metastatic cancer: 79 y/o male with metastatic male breast cancer, currently on chemotherapy who presented with acute hypoxic respiratory failure, multifocal pneumonia with perforated viscus intra-abdominal sepsis and atrial fibrillation with rapid ventricular response, currently intubated and sedated. 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 Feel free to contact if any questions Present on Admission?: Yes (2) Multifocal pneumonia: (3) Perforated abdominal viscus: (4) Sepsis: History of Present Illness Reason for Consultation: Metastatic male breast cancer Attending Physician: Yg Elkins MD History of Present Illness 79 y/o male with history of metastatic male breast cancer, currently on chemotherapy who presented today with acute shortness of breath and cough x1 week. In the ED patient was found to have acute hypoxic respiratory failure and was started on noninvasive ventilation. According his patient started feeling ill after his last chemotherapy with respiratory symptoms, anorexia, fatigue and hypersomnolence. Patient is being followed by Dr. Rust at [facility]. In the ICU patient and have decided for short-term intubation and mechanical ventilation. CT chest showed evidence of multifocal pneumonia and chest x-ray following the intubation demonstrated free intra- abdominal air consistent with viscus perforation. Surgical intervention was declined and patient will continue broad-spectrum antibiotic coverage. Patient was seen and examined at bedside. Lab data and imaging studies were reviewed. ONCOLOGIC HISTORY Diagnosis: 1. Initially diagnosed with invasive ductal carcinoma of the right breast, grade 3, ER/OK 80/70% positive, HER2 negative, diagnosed in 2006 2. Diagnosed with metastatic breast cancer, ER/OK 100%, HER2 negative on 09/06/2019. Stage: 1. Stage IIB (pT2 pN1a cM0) at diagnosis. 2. Currently with Stage IV disease Current therapy: 1. Received four cycles of AC-T, adjuvant RT and 5 years of Tamoxifen completed in 2011. 2. Abraxane 100 mg/m2 on days 1, 8, 15 of a 28 day cycle, 10/19/19 - 12/28/19; discontinued treatment due to PD and started Doxil 50 mg/m2 [id number] on 01/13/20. Prior treatment: 1. Right modified radical mastectomy with sentinel node biopsy followed by axillary dissection on 08/13/2006. Pathology revealed a 3 cm grade 3 invasive ductal carcinoma with no DCIS, LVI, or skin or nipple involvement. ER and OK were positive (80 and 70%, respectively) and HER2 was negative (0 by IHC). Two of two sentinel nodes were positive and a third focus of metastatic disease that appeared to be a completely replaced lymph node were found. Nine additional axillary nodes were found, which were negative (3/12 in total). 2. He received four cycles of dose-dense AC followed by four cycles of dose- dense Taxol. 3. He underwent adjuvant radiation to the chest wall and right axilla with boosts to the scar and posterior axilla, completed 03/19/2007. 4. He completed 5 years of Tamoxifen through 2011. 5. Patient developed two masses in the left breast, formally biopsied on 09/06/2019; biopsies showed invasive ductal carcinoma, ER/OK 100%, HER2 negative, Ki-67 35% and 20%. 6. PET/CT 10/06/19 showed numerous pulmonary nodules with mild FDG uptake, small focus of mild FDG uptake within posterior left hilum favoring roro metastasis, development of a 1 cm left upper quadrant omental nodule and retroperitoneal nodules, indeterminate sclerotic lesions of lumbar/thoracic spine and moderate left hydronephrosis due to 4 mm obstructing calculus. 7. He started Abraxane 100 mg/m2 on days 1, 8 and 15 of a 28 day cycle on 10/19/19. 8. CT chest 01/04 (following 3 cycles of Abraxane) showed multiple bilateral pulm nodules, similar to prior study, along with an indeterminate lesion within the thoracic spine. CT AP 01/04 showed 5 mm calculus within the distal left ureter, leading to severe left hydronephrosis; has numerous tiny peritoneal nodules, similar to previous; numerous sclerotic lesions, also similar to previous. 9. Started Doxil 50 mg/m2 [id number] in setting of poor treatment response on 01/13/20. Allergies Allergy/AdvReac Type Severity Reaction Status Date / Time mold Allergy Intermediate HIVES Verified 06/07/20 10:31 pollen extracts Allergy Intermediate ITCHING Verified 06/07/20 10:31 No Known Drug Allergies Allergy Verified 06/07/20 10:31 Home Medications Medication Instructions Recorded Confirmed Type lorazepam 0.5 mg tablet 0.5 mg PO DAILY PRN 10/06/19 06/07/20 History multivitamin 1 tab PO DAILY 10/06/19 06/07/20 History naproxen sodium 220 mg capsule 220 mg PO BID PRN 10/06/19 06/07/20 History psyllium husk 3.4 gram/5.4 gram 1 tsp PO QAM 10/06/19 06/07/20 History oral powder tamsulosin 0.4 mg capsule 0.4 mg PO DAILY 10/06/19 06/07/20 History cholecalciferol (vitamin D3) 25 mcg PO DAILY 10/11/19 06/07/20 History [Vitamin D3] vitamin B complex 1 cap PO DAILY 10/11/19 06/07/20 History albuterol sulfate 90 mcg/actuation 1 inh INHALATION QID PRN #18 g 05/17/20 06/07/20 Rx aerosol inhaler gabapentin 300 mg capsule 300 mg PO TID 05/17/20 06/07/20 History prednisone 10 mg tablet See Rx Instructions PO DAILY #100 05/17/20 06/07/20 Rx tab dorzolamide-timolol 1 drp OPB BID 06/07/20 06/07/20 History Patient History Medical History Benign localized prostatic hyperplasia with lower urinary tract symptoms (LUTS) Breast cancer in male RIGHT, CHEMO AND RADIATION PREVIOUSLY Breast cancer, male Chest x-ray abnormality Cough Metastatic cancer Nephrolithiasis Surgical History H/O inguinal hernia repair X2 BEFORE 1986 H/O mastectomy RIGHT BREAST 2006--PORT PLACEMENT WELL FOR CHEMO History of hernia surgery Port-A-Cath in place (10/14/19) Port placement. Dr. 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 ENT: External examination was negative for masses. Neck: Negative for masses or palpable thyromegaly. Respiratory: Lung sounds were COARSE, SCATTERED RALES. Cardiovascular: Heart was IRREGULAR without significant murmur, gallops or rubs. Gastrointestinal: The abdomen was soft with normal bowel sounds. Lymphatic system: There was no palpable peripheral lymphadenopathy. Musculoskeletal System: The musculoskeletal system seemed concordant with age. Skin: The skin was negative for jaundice. Neurologic Exam: The exam was negative for any focal findings. Extremities: Negative for edema or erythema Results & Data ([facility]) Vital Signs (Past 12 Hours) Vital Signs Temp Pulse Pulse Resp BP BP Pulse Ox 06/07/20 16:41 99 H 80/45 L 62 L 06/07/20 16:40 97 H 60 L 06/07/20 16:31 94 H 94/48 L 66 L 06/07/20 16:30 95 H 65 L 06/07/20 16:20 105 H 84 L 06/07/20 16:12 95 H 125/55 L 87 L 06/07/20 16:10 89 86 L 06/07/20 16:01 92 H 82/48 L 88 L 06/07/20 16:00 85 88 L 06/07/20 15:51 92 H 90/51 L 89 L 06/07/20 15:50 92 H 88 L 06/07/20 15:41 97 H 93/62 L 86 L 06/07/20 15:40 92 H 87 L 06/07/20 15:31 93 H 105/61 89 L 06/07/20 15:30 97 H 90 06/07/20 15:20 93 H 89 L 06/07/20 15:17 92 H 83/44 L 87 L 06/07/20 15:16 102 H 80/48 L 88 L 06/07/20 15:10 68 89 L 06/07/20 15:07 87 65/44 L 88 L 06/07/20 15:01 92 H 62/41 L 86 L 06/07/20 15:00 88 85 L 06/07/20 14:56 92 H 59/40 L 85 L 06/07/20 14:51 91 H 63/45 L 86 L 06/07/20 14:50 92 H 86 L 06/07/20 14:46 94 H 72/46 L 86 L 06/07/20 14:41 92 H 68/49 L 91 06/07/20 14:40 94 H 84 L 06/07/20 14:36 103 H 83/55 L 82 L 06/07/20 14:35 93 H 30 H 86 L 06/07/20 14:31 102 H 80/59 L 85 L 06/07/20 14:30 104 H 80 L 06/07/20 14:26 107 H 121/66 81 L 06/07/20 14:20 78 80 L 06/07/20 14:15 115 H 123/65 83 L 06/07/20 14:10 90 79 L 06/07/20 14:02 93 H 06/07/20 14:00 107 H 83 L 06/07/20 13:56 37.2 C 105 H 44 H 141/73 H 86 L 06/07/20 13:50 105 H 77 L 06/07/20 13:44 108 H 141/73 H 06/07/20 13:40 108 H 06/07/20 13:38 101 H 06/07/20 13:20 97 H 43 H 89 L 06/07/20 13:10 98 H 35 H 92 06/07/20 13:01 97 H 33 H 137/74 90 06/07/20 13:00 98 H 35 H 86 L 06/07/20 12:50 97 H 40 H 91 06/07/20 12:46 101 H 41 H 127/73 92 06/07/20 12:40 100 H 46 H 90 06/07/20 12:31 100 H 37 H 131/84 93 06/07/20 12:30 99 H 39 H 92 06/07/20 12:20 102 H 32 H 92 06/07/20 12:16 99 H 38 H 120/78 89 L 06/07/20 12:10 98 H 45 H 92 06/07/20 12:00 98 H 46 H 122/82 86 L 06/07/20 11:54 175 H 39 H 103/75 90 06/07/20 11:50 175 H 41 H 90 06/07/20 11:46 165 H 40 H 115/73 89 L 06/07/20 11:40 165 H 46 H 90 06/07/20 11:38 166 H 37 H 92 06/07/20 11:30 170 H 42 H 115/72 87 L 06/07/20 11:25 149 H 45 H 106/71 88 L 06/07/20 11:22 163 H 43 H 138/73 87 L 06/07/20 11:20 157 H 46 H 88 L 06/07/20 11:16 164 H 40 H 151/83 H 87 L 06/07/20 11:10 157 H 42 H 88 L 06/07/20 11:01 160 H 42 H 120/95 92 06/07/20 11:00 169 H 40 H 87 L 06/07/20 10:36 150 H 20 117/81 93 06/07/20 10:22 168 H 18 140/102 H 93 06/07/20 10:07 144 H 20 127/79 94 06/07/20 09:41 36.9 C 160 H 32 H 127/92 70 L 06/07/20 09:40 166 H 36 H 94 06/07/20 09:34 70 L Laboratory Results 06/07/20 06/07/20 06/07/20 Range/Units 15:47 14:19 14:07 WBC (4.8-10.8) K/uL RBC (4.7-6.1) M/uL Hgb (14.0-18.0) g/dL POC Hgb 14.6 (14.0-18.0) g/dl Hct (42-52) % POC Hct 43 (42-52) % MCV (80-100) fL MCH (25-34) pg MCHC (32-36) g/dL RDW Std Deviation (36.4-46.3) fL RDW Coeff of Winter (11.5-14.5) % Plt Count (130-400) K/uL MPV (7.4-10.4) fL Immature Gran % (Auto) % Neut % (Auto) % Lymph % (Auto) % Wood % (Auto) % Eos % (Auto) % Baso % (Auto) % Neut # (Auto) (1.4-6.5) K/uL Lymph # (Auto) (1.2-3.4) K/uL Wood # (Auto) (0.11-0.59) K/uL Eos # (Auto) (0-0.5) K/uL Baso # (Auto) (0-0.2) K/uL Immature Gran # (Auto) (0.00-0.02) K/uL Toxic Granulation Toxic Vacuolation Echinocytes PT (9.0-12.0) Seconds INR (0.9-1.1) APTT (21.0-31.0) Seconds PTT Ratio Sample Site R Radial POC pH 7.32 L (7.35-7.45) POC pCO2 36 (35-46) mmHg POC pO2 52 L (80-95) mmHg POC HCO3 19 (19-24) faheem/L POC Total CO2 20 L (24-31) mmol/L POC Base Excess -7.0 (-9-1.8) faheem/L ABG pH (7.35-7.45) ABG pH (Temp Correct) 7.319 L (7.35-7.45) ABG pCO2 (35-46) mmHg ABG pCO2 (Temp Corrct 36 (35-46) mmHg ABG pO2 (80-95) mmHg POC ABG pO2 at Pt Temp 52 ABG HCO3 (19-24) mmol/L POC ABG O2 Sat 84.0 L (90-95) % ABG O2 Saturation (90-95) % ABG Base Excess (-9-1.8) mEq/L Dennis Test NA (Pos) Barometric Pressure mm/Hg Oxygen Given O2 Delivery Device BIPAP POC FiO2 100 % IPAP 15 POC Sodium 137 (135-144) mmol/L Sodium (136-145) mmol/L POC Potassium 4.1 (3.3-5.0) mmol/L Potassium (3.5-5.1) mmol/L Chloride (98-107) mmol/L Carbon Dioxide (21-32) mmol/L Anion Gap (3-11) BUN (7-18) mg/dl Creatinine (0.6-1.4) mg/dl Est Cr Clr Drug Dosing ml/min Est GFR ( Amer) Est GFR (Non-Af Amer) BUN/Creatinine Ratio (10-20) Glucose (70-99) mg/dl Lactate 4.4 H* (0.4-2.0) mmol/L Calcium (8.5-10.1) mg/dl Magnesium (1.8-2.4) mg/dl Total Bilirubin (0.2-1) mg/dl AST (15-37) U/L ALT (12-78) U/L Alkaline Phosphatase (45-117) U/L Lactate Dehydrogenase (87-241) U/L Total Creatine Kinase (39-308) U/L Troponin I (0-0.045) ng/ml C-Reactive Protein (0-0.29) mg/dl Total Protein (6.4-8.2) gm/dl Albumin (3.4-5.0) gm/dl Globulin (2.5-4.0) gm/dl Albumin/Globulin Ratio (0.9-2) Procalcitonin (0-0.5) ng/ml TSH (0.300-4.500) uIu/ml Nasal Screen MRSA (PCR) Pending COVID-19 Eval Order SARS-CoV-2 (PCR) (Negative) Influenza Type A (PCR) (Neg) Influenza Type B (PCR) (Neg) RSV (RT-PCR) (Neg) 06/07/20 06/07/20 06/07/20 Range/Units 12:13 11:15 11:15 WBC (4.8-10.8) K/uL RBC (4.7-6.1) M/uL Hgb (14.0-18.0) g/dL POC Hgb (14.0-18.0) g/dl Hct (42-52) % POC Hct (42-52) % MCV (80-100) fL MCH (25-34) pg MCHC (32-36) g/dL RDW Std Deviation (36.4-46.3) fL RDW Coeff of Winter (11.5-14.5) % Plt Count (130-400) K/uL MPV (7.4-10.4) fL Immature Gran % (Auto) % Neut % (Auto) % Lymph % (Auto) % Wood % (Auto) % Eos % (Auto) % Baso % (Auto) % Neut # (Auto) (1.4-6.5) K/uL Lymph # (Auto) (1.2-3.4) K/uL Wood # (Auto) (0.11-0.59) K/uL Eos # (Auto) (0-0.5) K/uL Baso # (Auto) (0-0.2) K/uL Immature Gran # (Auto) (0.00-0.02) K/uL Toxic Granulation Toxic Vacuolation Echinocytes PT (9.0-12.0) Seconds INR (0.9-1.1) APTT (21.0-31.0) Seconds PTT Ratio Sample Site POC pH (7.35-7.45) POC pCO2 (35-46) mmHg POC pO2 (80-95) mmHg POC HCO3 (19-24) faheem/L POC Total CO2 (24-31) mmol/L POC Base Excess (-9-1.8) faheem/L ABG pH (7.35-7.45) ABG pH (Temp Correct) (7.35-7.45) ABG pCO2 (35-46) mmHg ABG pCO2 (Temp Corrct (35-46) mmHg ABG pO2 (80-95) mmHg POC ABG pO2 at Pt Temp ABG HCO3 (19-24) mmol/L POC ABG O2 Sat (90-95) % ABG O2 Saturation (90-95) % ABG Base Excess (-9-1.8) mEq/L Dennis Test (Pos) Barometric Pressure mm/Hg Oxygen Given O2 Delivery Device POC FiO2 % IPAP POC Sodium (135-144) mmol/L Sodium (136-145) mmol/L POC Potassium (3.3-5.0) mmol/L Potassium (3.5-5.1) mmol/L Chloride (98-107) mmol/L Carbon Dioxide (21-32) mmol/L Anion Gap (3-11) BUN (7-18) mg/dl Creatinine (0.6-1.4) mg/dl Est Cr Clr Drug Dosing ml/min Est GFR ( Amer) Est GFR (Non-Af Amer) BUN/Creatinine Ratio (10-20) Glucose (70-99) mg/dl Lactate 3.8 H* (0.4-2.0) mmol/L Calcium (8.5-10.1) mg/dl Magnesium (1.8-2.4) mg/dl Total Bilirubin (0.2-1) mg/dl AST (15-37) U/L ALT (12-78) U/L Alkaline Phosphatase (45-117) U/L Lactate Dehydrogenase (87-241) U/L Total Creatine Kinase (39-308) U/L Troponin I (0-0.045) ng/ml C-Reactive Protein (0-0.29) mg/dl Total Protein (6.4-8.2) gm/dl Albumin (3.4-5.0) gm/dl Globulin (2.5-4.0) gm/dl Albumin/Globulin Ratio (0.9-2) Procalcitonin (0-0.5) ng/ml TSH (0.300-4.500) uIu/ml Nasal Screen MRSA (PCR) COVID-19 Eval Order [facility] at [facility] SARS-CoV-2 (PCR) NEGATIVE (Negative) Influenza Type A (PCR) Negative (Neg) Influenza Type B (PCR) Negative (Neg) RSV (RT-PCR) Negative (Neg) 06/07/20 06/07/20 06/07/20 Range/Units 10:19 10:19 10:17 WBC (4.8-10.8) K/uL RBC (4.7-6.1) M/uL Hgb (14.0-18.0) g/dL POC Hgb (14.0-18.0) g/dl Hct (42-52) % POC Hct (42-52) % MCV (80-100) fL MCH (25-34) pg MCHC (32-36) g/dL RDW Std Deviation (36.4-46.3) fL RDW Coeff of Winter (11.5-14.5) % Plt Count (130-400) K/uL MPV (7.4-10.4) fL Immature Gran % (Auto) % Neut % (Auto) % Lymph % (Auto) % Wood % (Auto) % Eos % (Auto) % Baso % (Auto) % Neut # (Auto) (1.4-6.5) K/uL Lymph # (Auto) (1.2-3.4) K/uL Wood # (Auto) (0.11-0.59) K/uL Eos # (Auto) (0-0.5) K/uL Baso # (Auto) (0-0.2) K/uL Immature Gran # (Auto) (0.00-0.02) K/uL Toxic Granulation Toxic Vacuolation Echinocytes PT (9.0-12.0) Seconds INR (0.9-1.1) APTT (21.0-31.0) Seconds PTT Ratio Sample Site POC pH (7.35-7.45) POC pCO2 (35-46) mmHg POC pO2 (80-95) mmHg POC HCO3 (19-24) faheem/L POC Total CO2 (24-31) mmol/L POC Base Excess (-9-1.8) faheem/L ABG pH 7.33 L (7.35-7.45) ABG pH (Temp Correct) (7.35-7.45) ABG pCO2 36 (35-46) mmHg ABG pCO2 (Temp Corrct (35-46) mmHg ABG pO2 75 L (80-95) mmHg POC ABG pO2 at Pt Temp ABG HCO3 18 L (19-24) mmol/L POC ABG O2 Sat (90-95) % ABG O2 Saturation 95.2 H (90-95) % ABG Base Excess -6.9 (-9-1.8) mEq/L Dennis Test Pos (Pos) Barometric Pressure 730.2 mm/Hg Oxygen Given 90% O2 Delivery Device POC FiO2 % IPAP POC Sodium (135-144) mmol/L Sodium (136-145) mmol/L POC Potassium (3.3-5.0) mmol/L Potassium (3.5-5.1) mmol/L Chloride (98-107) mmol/L Carbon Dioxide (21-32) mmol/L Anion Gap (3-11) BUN (7-18) mg/dl Creatinine (0.6-1.4) mg/dl Est Cr Clr Drug Dosing ml/min Est GFR ( Amer) Est GFR (Non-Af Amer) BUN/Creatinine Ratio (10-20) Glucose (70-99) mg/dl Lactate (0.4-2.0) mmol/L Calcium (8.5-10.1) mg/dl Magnesium (1.8-2.4) mg/dl Total Bilirubin (0.2-1) mg/dl AST (15-37) U/L ALT (12-78) U/L Alkaline Phosphatase (45-117) U/L Lactate Dehydrogenase 301 H (87-241) U/L Total Creatine Kinase 45 (39-308) U/L Troponin I (0-0.045) ng/ml C-Reactive Protein > 19.00 H (0-0.29) mg/dl Total Protein (6.4-8.2) gm/dl Albumin (3.4-5.0) gm/dl Globulin (2.5-4.0) gm/dl Albumin/Globulin Ratio (0.9-2) Procalcitonin (0-0.5) ng/ml TSH (0.300-4.500) uIu/ml Nasal Screen MRSA (PCR) COVID-19 Eval Order SARS-CoV-2 (PCR) (Negative) Influenza Type A (PCR) (Neg) Influenza Type B (PCR) (Neg) RSV (RT-PCR) (Neg) 06/07/20 06/07/20 06/07/20 Range/Units 10:17 09:30 09:30 WBC (4.8-10.8) K/uL RBC (4.7-6.1) M/uL Hgb (14.0-18.0) g/dL POC Hgb (14.0-18.0) g/dl Hct (42-52) % POC Hct (42-52) % MCV (80-100) fL MCH (25-34) pg MCHC (32-36) g/dL RDW Std Deviation (36.4-46.3) fL RDW Coeff of Winter (11.5-14.5) % Plt Count (130-400) K/uL MPV (7.4-10.4) fL Immature Gran % (Auto) % Neut % (Auto) % Lymph % (Auto) % Wood % (Auto) % Eos % (Auto) % Baso % (Auto) % Neut # (Auto) (1.4-6.5) K/uL Lymph # (Auto) (1.2-3.4) K/uL Wood # (Auto) (0.11-0.59) K/uL Eos # (Auto) (0-0.5) K/uL Baso # (Auto) (0-0.2) K/uL Immature Gran # (Auto) (0.00-0.02) K/uL Toxic Granulation Toxic Vacuolation Echinocytes PT 11.0 (9.0-12.0) Seconds INR 1.1 (0.9-1.1) APTT 27.5 (21.0-31.0) Seconds PTT Ratio 1.0 Sample Site POC pH (7.35-7.45) POC pCO2 (35-46) mmHg POC pO2 (80-95) mmHg POC HCO3 (19-24) faheem/L POC Total CO2 (24-31) mmol/L POC Base Excess (-9-1.8) faheem/L ABG pH (7.35-7.45) ABG pH (Temp Correct) (7.35-7.45) ABG pCO2 (35-46) mmHg ABG pCO2 (Temp Corrct (35-46) mmHg ABG pO2 (80-95) mmHg POC ABG pO2 at Pt Temp ABG HCO3 (19-24) mmol/L POC ABG O2 Sat (90-95) % ABG O2 Saturation (90-95) % ABG Base Excess (-9-1.8) mEq/L Dennis Test (Pos) Barometric Pressure mm/Hg Oxygen Given O2 Delivery Device POC FiO2 % IPAP POC Sodium (135-144) mmol/L Sodium 136 (136-145) mmol/L POC Potassium (3.3-5.0) mmol/L Potassium 4.2 (3.5-5.1) mmol/L Chloride 104 (98-107) mmol/L Carbon Dioxide 22 (21-32) mmol/L Anion Gap 10.0 (3-11) BUN 53 H (7-18) mg/dl Creatinine 1.57 H (0.6-1.4) mg/dl Est Cr Clr Drug Dosing 35.7 ml/min Est GFR ( Amer) 47.2 Est GFR (Non-Af Amer) 40.7 BUN/Creatinine Ratio 33.9 H (10-20) Glucose 128 H (70-99) mg/dl Lactate (0.4-2.0) mmol/L Calcium 9.7 (8.5-10.1) mg/dl Magnesium 2.4 (1.8-2.4) mg/dl Total Bilirubin 0.8 (0.2-1) mg/dl AST 33 (15-37) U/L ALT 42 (12-78) U/L Alkaline Phosphatase 159 H (45-117) U/L Lactate Dehydrogenase (87-241) U/L Total Creatine Kinase (39-308) U/L Troponin I 0.106 H* (0-0.045) ng/ml C-Reactive Protein (0-0.29) mg/dl Total Protein 6.6 (6.4-8.2) gm/dl Albumin 2.3 L (3.4-5.0) gm/dl Globulin 4.3 H (2.5-4.0) gm/dl Albumin/Globulin Ratio 0.5 L (0.9-2) Procalcitonin 16.56 H (0-0.5) ng/ml TSH 0.420 (0.300-4.500) uIu/ml Nasal Screen MRSA (PCR) COVID-19 Eval Order SARS-CoV-2 (PCR) (Negative) Influenza Type A (PCR) (Neg) Influenza Type B (PCR) (Neg) RSV (RT-PCR) (Neg) 06/07/20 Range/Units 09:30 WBC 8.93 (4.8-10.8) K/uL RBC 3.91 L (4.7-6.1) M/uL Hgb 13.7 L (14.0-18.0) g/dL POC Hgb (14.0-18.0) g/dl Hct 39.9 L (42-52) % POC Hct (42-52) % MCV 102.0 H (80-100) fL MCH 35.0 H (25-34) pg MCHC 34.3 (32-36) g/dL RDW Std Deviation 55.7 H (36.4-46.3) fL RDW Coeff of Winter 14.9 H (11.5-14.5) % Plt Count 162 (130-400) K/uL MPV 10.5 H (7.4-10.4) fL Immature Gran % (Auto) 8.3 % Neut % (Auto) 89.4 % Lymph % (Auto) 1.5 % Wood % (Auto) 0.2 % Eos % (Auto) 0.4 % Baso % (Auto) 0.2 % Neut # (Auto) 7.98 H (1.4-6.5) K/uL Lymph # (Auto) 0.13 L (1.2-3.4) K/uL Wood # (Auto) 0.02 L (0.11-0.59) K/uL Eos # (Auto) 0.04 (0-0.5) K/uL Baso # (Auto) 0.02 (0-0.2) K/uL Immature Gran # (Auto) 0.74 H (0.00-0.02) K/uL Toxic Granulation 1+ Toxic Vacuolation 1+ Echinocytes 1+ PT (9.0-12.0) Seconds INR (0.9-1.1) APTT (21.0-31.0) Seconds PTT Ratio Sample Site POC pH (7.35-7.45) POC pCO2 (35-46) mmHg POC pO2 (80-95) mmHg POC HCO3 (19-24) faheem/L POC Total CO2 (24-31) mmol/L POC Base Excess (-9-1.8) faheem/L ABG pH (7.35-7.45) ABG pH (Temp Correct) (7.35-7.45) ABG pCO2 (35-46) mmHg ABG pCO2 (Temp Corrct (35-46) mmHg ABG pO2 (80-95) mmHg POC ABG pO2 at Pt Temp ABG HCO3 (19-24) mmol/L POC ABG O2 Sat (90-95) % ABG O2 Saturation (90-95) % ABG Base Excess (-9-1.8) mEq/L Dennis Test (Pos) Barometric Pressure mm/Hg Oxygen Given O2 Delivery Device POC FiO2 % IPAP POC Sodium (135-144) mmol/L Sodium (136-145) mmol/L POC Potassium (3.3-5.0) mmol/L Potassium (3.5-5.1) mmol/L Chloride (98-107) mmol/L Carbon Dioxide (21-32) mmol/L Anion Gap (3-11) BUN (7-18) mg/dl Creatinine (0.6-1.4) mg/dl Est Cr Clr Drug Dosing ml/min Est GFR ( Amer) Est GFR (Non-Af Amer) BUN/Creatinine Ratio (10-20) Glucose (70-99) mg/dl Lactate (0.4-2.0) mmol/L Calcium (8.5-10.1) mg/dl Magnesium (1.8-2.4) mg/dl Total Bilirubin (0.2-1) mg/dl AST (15-37) U/L ALT (12-78) U/L Alkaline Phosphatase (45-117) U/L Lactate Dehydrogenase (87-241) U/L Total Creatine Kinase (39-308) U/L Troponin I (0-0.045) ng/ml C-Reactive Protein (0-0.29) mg/dl Total Protein (6.4-8.2) gm/dl Albumin (3.4-5.0) gm/dl Globulin (2.5-4.0) gm/dl Albumin/Globulin Ratio (0.9-2) Procalcitonin (0-0.5) ng/ml TSH (0.300-4.500) uIu/ml Nasal Screen MRSA (PCR) COVID-19 Eval Order SARS-CoV-2 (PCR) (Negative) Influenza Type A (PCR) (Neg) Influenza Type B (PCR) (Neg) RSV (RT-PCR) (Neg) Diagnostic Findings [facility], [id number] XRay Report Patient: NINA OROURKE GAdmit Date: 06/07/20MR#: [id number]: [id number] [facility] ID:[id number]: Date: 1940[facility] Zip: [place], [place] [address]Vel: 81Location: 1ESex: MRoom/Bed: [id number] Phy: Yg Elkins, MDDiagnosis: ACUTE HYPOXIC RESP FAILUREPri Phy: Earle Mata, MDService Date: 06/07/20[facility] Phy:Interpreting Phy: Santosh Verduzco MDAdmit Phy: Yg Elkins MD Ordering Phy: Irvin Moore D.O. cc: ~ SINGLE VIEW CHEST CLINICAL HISTORY: Respiratory failure. Intubation. FINDINGS: An AP, portable, upright chest radiograph is compared to chest x-ray and chest CT dated 06/07/2020. An endotracheal tube has been placed. The tip projects approximately 3 cm above the carol. An enteric tube has been placed. This projects below the diaphragm of the stomach. A right subclavian central venous infusion port is unchanged in position. The heart is enlarged. There is multifocal airspace consolidation throughout both lungs, nearly confluent throughout the right lung. Trace pleural effusions are noted. No pneumothorax is seen. The skeletal structures are osteopenic. The bony thorax is grossly intact. Intraperitoneal free air is seen below the diaphragm. IMPRESSION: 1. Endotracheal and enteric tubes have been placed as above. 2. Intra-abdominal air is seen below the diaphragm. This is concerning for visceral perforation. Clinical correlation will be essential. 3. Multifocal airspace consolidation is throughout both lungs, right significantly greater than left is similar to previous. 4. Small pleural effusions. 5. Cardiomegaly. CT CHEST: Unremarkable thyroid. Enlarged right hilar lymph nodes measure up to 12 mm. Trace left and small right pleural effusions. Multifocal right greater than left bilateral groundglass and alveolar opacities are noted with areas of intralobular septal thickening most pronounced in the right lung. Chronic subpleural reticulation suggests fibrosis. 10 mm solid nodule of the left upper lobe on image 2 please is unchanged in size. 1.5 cm subpleural nodule of the left lower lobe on image 154 previously measured 1.2 cm. The additional bilateral pulmonary metastasis are mostly obscured by the aforementioned airspace disease. Central airways are patent. Mild wall thickening of the distal esophagus. No acute process of the imaged upper abdomen. No acute fracture. Slightly increased size of the scattered sclerotic lesions of the thoracic spine. The 10 mm lesion at T9 previously measured approximately 6-7 mm. The 5 mm T3 lesion previously measured 4 mm. IMPRESSION: 1. Cardiomegaly without pulmonary emboli. 2. Multifocal right greater than left groundglass and consolidative opacities suggests multifocal pneumonia. A component of superimposed asymmetric right- sided pulmonary edema would be difficult to exclude. 3. Small right and trace left pleural effusions. 4. Pulmonary metastasis redemonstrated. 5. Mild progression of the presumed sclerotic metastasis within the thoracic spine. 6. Mild right hilar adenopathy. (1) Metastatic cancer Area of secondary neoplastic involvement: respiratory structure Laterality: unspecified laterality Respiratory structure secondary neoplasm location: metastatic to lung Qualified Code(s): C78.00 - Secondary malignant neoplasm of unspecified lung (2) Sepsis Acute renal failure type: unspecified Sepsis acute organ dysfunction status: with acute organ dysfunction Sepsis type: sepsis due to unspecified organism Severe sepsis acute organ dysfunction type: acute renal failure Severe sepsis shock status: without septic shock Qualified Code(s): A41.9 - Sepsis, unspecified organism; R65.20 - Severe sepsis without septic shock; N17.9 - Acute kidney failure, unspecified
--- NOTE | 2020-06-07 17:17 | Emergency Department Note ---
Impression & Plan Atrial fibrillation with rapid ventricular response, Congestive heart failure, Metastasis from breast cancer ED Provider Note NAME: NINA OROURKE AGE: 79 SEX: M ARRIVES VIA: Ambulance INFORMANT: , EMS ED PROVIDER(S): Shantal Mcgrath MD CHIEF COMPLAINT: Shortness of breath, hypoxia PLAN: Disposition: Inpatient, ICU Condition: Guarded Referral: Hospitalist MEDICAL DECISION MAKING: This patient was evaluated and appeared to be hypoxic and noted to be in rapid atrial fibrillation on the mine wirer. Patient had received 10 mg of IV Cardizem prior to my evaluation by EMS. He was placed on a nonrebreather immediately and respiratory therapy was contacted for BiPAP. Patient was given 5 mg of IV metoprolol with a second dose closely to follow. Chest x-ray was performed and reveals an asymmetric pulmonary edema. Patient was given 40 mg of IV Lasix and 1/2 inch of nitroglycerin paste was applied. A third dose of IV metoprolol was given. Patient remained in a rapid atrial fibrillation. Laboratory work reveals a slightly elevated troponin but a normal WBC. Patient's case was discussed with the hospitalist. He was given digoxin 0.5 mg IV. He did seem to be improving clinically and converted to a normal sinus rhythm. Case was discussed with the hospitalist, is updated and patient will be admitted for further management. Triage Nursing notes reviewed. Vital Signs: reviewed and remarkable for tachycardia, hypoxia Differential diagnosis: Reactive airway disease, pneumonia, pneumothorax, COPD, CHF, infections, cardiac ischemia, pulmonary embolism, musculoskeletal, gastrointestinal, as well as other pathologies. ER treatment provided: IV metoprolol IV cardizem bolus and drip topical NTG IV digoxin Diagnostics interpreted by me: ECG: Atrial fibrillation with RVR at 195 bpm. Poor quality baseline for interpretation. Nonspecific ST changes throughout. QTc is 356. Significant changes have occurred when compared to 10/11/2019. EKG #2: Normal sinus rhythm at 99 bpm. Poor quality baseline for interpretation. No PVC, no PAC. QTc is 420. Significant improvement from previous EKG. Normal sinus rhythm has replaced rapid atrial fibrillation. Cardiac Monitoring: An order for cardiac monitoring was placed and the patient is noted to be in a rapid atrial fibrillation at 166 bpm. Laboratory studies: See below Imaging studies: XR chest 1V portable HISTORY: 79 years-old Male Dysrhythmia acute shortness of breath COMPARISON: Chest radiographs 05/02/2020 TECHNIQUE: Portable AP view of the chest FINDINGS: Cardiomegaly. Right subclavian Lkwckr-f-Ngtb catheter distal tip terminates within the region of the right atrium. No pneumothorax. Interval development of extensive airspace opacities throughout the right lung with small right pleural effusion. Reticular nodular interstitial opacities are redemonstrated bilaterally. Mild left lung base airspace opacities. Degenerative changes of the shoulders and spine. IMPRESSION: 1. Cardiomegaly with interval development of asymmetric multifocal airspace opacities throughout the right lung suggestive of asymmetric pulmonary edema versus pneumonia. 2. Bilateral reticular nodular opacities redemonstrated. 3. Small right pleural effusion. ACT 112: Negative or not required by law. The above report was generated using voice recognition software. It may contain grammatical, syntax or spelling errors. Electronically signed by: Chucho Arredondo M.D. 06/07/2020 9:51 AM Dictated: 06/07/20940Transcribed: 06/07/20940 CT angio chest PE protocol CT DOSE: 292.55 mGy.cm HISTORY: 79 years-old Male with PE. Acute chest pain with shortness of breath. History of breast cancer with recent chemotherapy. Hypoxia with atrial fibrillation. History of metastatic breast cancer. TECHNIQUE: Multiple CTA images of the chest were obtained after the intravenous administration of Optiray 320. Coronal and sagittal MIPS were obtained from the axial data set and were submitted for review. All measurements were obtained according to NASCET criteria. A dose lowering technique was utilized adhering to the principles of ALARA. COMPARISON: Chest radiograph of same day, chest CT 01/05/2020 FINDINGS: CTA: Moderate cardiomegaly. No pericardial effusion. Mild coronary artery calcifications. Thoracic aorta is not well opacified and therefore difficult to evaluate. No thoracic aortic aneurysm. The pulmonary arterial tree is opacified to the level of the proximal subsegmental branches. The subsegmental branches are not well opacified secondary to contrast bolus timing. No filling defects identified. Reflux of contrast into the IVC and hepatic veins. Right subclavian Zkifoo-w-Tvfc catheter distal tip terminates within the SVC. CT CHEST: Unremarkable thyroid. Enlarged right hilar lymph nodes measure up to 12 mm. Trace left and small right pleural effusions. Multifocal right greater than left bilateral groundglass and alveolar opacities are noted with areas of intralobular septal thickening most pronounced in the right lung. Chronic subpleural reticulation suggests fibrosis. 10 mm solid nodule of the left upper lobe on image 2 please is unchanged in size. 1.5 cm subpleural nodule of the left lower lobe on image 154 previously measured 1.2 cm. The additional bilateral pulmonary metastasis are mostly obscured by the aforementioned airspace disease. Central airways are patent. Mild wall thickening of the distal esophagus. No acute process of the imaged upper abdomen. No acute fracture. Slightly increased size of the scattered sclerotic lesions of the thoracic spine. The 10 mm lesion at T9 previously measured approximately 6-7 mm. The 5 mm T3 lesion previously measured 4 mm. IMPRESSION: 1. Cardiomegaly without pulmonary emboli. 2. Multifocal right greater than left groundglass and consolidative opacities suggests multifocal pneumonia. A component of superimposed asymmetric right- sided pulmonary edema would be difficult to exclude. 3. Small right and trace left pleural effusions. 4. Pulmonary metastasis redemonstrated. 5. Mild progression of the presumed sclerotic metastasis within the thoracic spine. 6. Mild right hilar adenopathy. ACT 112: Negative or not required by law. The above report was generated using voice recognition software. It may contain grammatical, syntax or spelling errors. Electronically signed by: Chucho Arredondo M.D. 06/07/2020 10:21 AM Consultation(s): Hospitalist HPI: Chas/Nia arrives for evaluation of shortness of breath. Patient has apparently been feeling ill for the last 4 days according to his . He suffers from metastatic breast cancer and has been under treatment of chemotherapy. She states he got a "large dose" of steroids and chemotherapy within the last week. She denies that he has had a fever, chest pain, vomiting or diarrhea but he has been sleeping quite a bit. She called the ambulance this morning because he did not seem to be breathing quite right and looked somewhat blue. History is limited as the patient is unable to contribute due to his critical presentation. ROS: See above HPI for pertinent positives & negatives. A total of 10 systems reviewed and were otherwise negative. PAST MEDICAL HISTORY:See Below PAST SURGICAL HISTORY:See Below FAMILY HISTORY:See Below SOCIAL HISTORY:See Below HOME MEDICATIONS:See Below ALLERGIES:See Below VITALS:See Below PHYSICAL EXAMINATION: Vital signs reviewed. Tachycardic and hypoxic. General: Critically ill-appearing 79-year-old male, cyanotic lips. Increased work of breathing. HEENT: No scleral icterus, PERRLA, neck supple. Perioral cyanosis Cardiovascular: Regular rate and rhythm, no extra sounds. Pulmonary: Rhonchorous breath sounds bilaterally, increased work of breathing. On nonrebreather. Abdomen: Soft, nontender, nondistended, positive bowel sounds. Musculoskeletal: Atraumatic, no peripheral edema. Neurologic: Patient awake alert but unable to answer questions. Skin: Warm, dry, no rash I have personally spent greater than 60 minutes of critical care time in the direct management of this patient. This includes bedside care, interpretation of diagnostic studies, and testing, discussion with consultants, patient, and family members, and other required patient management activities. This 60 mi nutes is in excess of all separately billable procedures. Shantal Mcgrath MD Past Med/Surg History Medical History Benign localized prostatic hyperplasia with lower urinary tract symptoms (LUTS) Breast cancer in male RIGHT, CHEMO AND RADIATION PREVIOUSLY Breast cancer, male Chest x-ray abnormality Cough Metastatic cancer Nephrolithiasis Surgical History H/O inguinal hernia repair X2 BEFORE 1986 H/O mastectomy RIGHT BREAST 2006--PORT PLACEMENT WELL FOR CHEMO History of hernia surgery Port-A-Cath in place (10/14/19) Port placement. Dr. Ford 10/14/2019 Family History Grandfather (Maternal) Cancer Other Allergies Emphysema, unspecified Heart disease Denies family history of Tuberculosis Diabetes Lung disease Asthma Social History Smoking Status: Former smoker Age Quit Using Tobacco: 48; Years Smoked: 30; Second Hand Exposure: No; Do You Dip or Chew Tobacco: No; Tobacco Cessation Education Requested by Patient: No Hx Alcohol Use: Yes Alcohol type: hard liquor Hx Substance Use: Yes Substance Use Type Other:: in the 1970s Preferred Language: Icelandic Communication Ability: Effective Telecommunications Linesworker Required: No Beliefs That Will Affect Care: None marital status: kristi Current Living Situation: Spouse current occupational status: retired Other Information That Helps Us Care for You: No Feels Safe at Home: Yes Safety Concerns: Feels Safe At This Time Assistive Devices: Cane and Oxygen - Continuous Allergies Allergies Allergy/AdvReac Type Severity Reaction Status Date / Time mold Allergy Intermediate HIVES Verified 06/07/20 10:31 pollen extracts Allergy Intermediate ITCHING Verified 06/07/20 10:31 No Known Drug Allergies Allergy Verified 06/07/20 10:31 Home Meds Home Medications Medication Instructions Recorded Confirmed lorazepam 0.5 mg tablet 0.5 mg PO DAILY PRN 10/06/19 06/07/20 multivitamin 1 tab PO DAILY 10/06/19 06/07/20 naproxen sodium 220 mg capsule 220 mg PO BID PRN 10/06/19 06/07/20 psyllium husk 3.4 gram/5.4 gram 1 tsp PO QAM 10/06/19 06/07/20 oral powder tamsulosin 0.4 mg capsule 0.4 mg PO DAILY 10/06/19 06/07/20 cholecalciferol (vitamin D3) 25 mcg PO DAILY 10/11/19 06/07/20 [Vitamin D3] vitamin B complex 1 cap PO DAILY 10/11/19 06/07/20 gabapentin 300 mg capsule 300 mg PO TID 05/17/20 06/07/20 dorzolamide-timolol 1 drp OPB BID 06/07/20 06/07/20 Previous Rx's Medication Instructions Recorded albuterol sulfate 90 mcg/actuation 1 inh INHALATION QID PRN #18 g 05/17/20 aerosol inhaler prednisone 10 mg tablet See Rx Instructions PO DAILY #100 05/17/20 tab Results & Data (ED) Vital Signs Vital Signs - 24 hr 06/07/20 09:34 06/07/20 09:40 06/07/20 09:41 Temperature 36.9 C Temperature Source Oral Pulse Rate 166 H 160 H Pulse Rate [Apical] Pulse Rate from SpO2 Sensor Respiratory Rate 36 H 32 H Respiratory Effort / Characteristics Labored Short of Breath Respiratory Depth Blood Pressure 127/92 Blood Pressure [Left Arm] Blood Pressure Mean 103 Blood Pressure Mean [Left Arm] Pulse Oximetry 70 L 94 70 L Oxygen Delivery Method Room Air BiPAP Room Air Oxygen Flow Rate 0 Fraction of Inspired Oxygen 100 Sepsis Recent Fever Within 48 Hours No Sepsis New/Unexplained Change in Mental Status No Sepsis Action Taken by Nursing Physician Notified Pulse Oximetry Post Tiitration 92 06/07/20 09:46 06/07/20 10:07 06/07/20 10:22 Temperature Temperature Source Pulse Rate Pulse Rate [Apical] 144 H 168 H Pulse Rate from SpO2 Sensor Respiratory Rate 20 18 Respiratory Effort / Characteristics Respiratory Depth Blood Pressure Blood Pressure [Left Arm] 127/79 140/102 H Blood Pressure Mean Blood Pressure Mean [Left Arm] 95 114 Pulse Oximetry 94 93 Oxygen Delivery Method BiPAP BiPAP Oxygen Flow Rate Fraction of Inspired Oxygen 90 Sepsis Recent Fever Within 48 Hours Sepsis New/Unexplained Change in Mental Status Sepsis Action Taken by Nursing Pulse Oximetry Post Tiitration 06/07/20 10:36 06/07/20 11:00 06/07/20 11:01 Temperature Temperature Source Pulse Rate 169 H 160 H Pulse Rate [Apical] 150 H Pulse Rate from SpO2 Sensor 174 H 157 H Respiratory Rate 20 40 H 42 H Respiratory Effort / Characteristics Respiratory Depth Blood Pressure 120/95 Blood Pressure [Left Arm] 117/81 Blood Pressure Mean 103 Blood Pressure Mean [Left Arm] 93 Pulse Oximetry 93 87 L 92 Oxygen Delivery Method BiPAP BiPAP Oxygen Flow Rate Fraction of Inspired Oxygen Sepsis Recent Fever Within 48 Hours Sepsis New/Unexplained Change in Mental Status Sepsis Action Taken by Nursing Pulse Oximetry Post Tiitration 06/07/20 11:10 06/07/20 11:16 06/07/20 11:20 Temperature Temperature Source Pulse Rate 157 H 164 H 157 H Pulse Rate [Apical] Pulse Rate from SpO2 Sensor 180 H 127 H 151 H Respiratory Rate 42 H 40 H 46 H Respiratory Effort / Characteristics Respiratory Depth Blood Pressure 151/83 H Blood Pressure [Left Arm] Blood Pressure Mean 105 Blood Pressure Mean [Left Arm] Pulse Oximetry 88 L 87 L 88 L Oxygen Delivery Method Oxygen Flow Rate Fraction of Inspired Oxygen Sepsis Recent Fever Within 48 Hours Sepsis New/Unexplained Change in Mental Status Sepsis Action Taken by Nursing Pulse Oximetry Post Tiitration 06/07/20 11:22 06/07/20 11:25 06/07/20 11:30 Temperature Temperature Source Pulse Rate 163 H 149 H 170 H Pulse Rate [Apical] Pulse Rate from SpO2 Sensor 83 150 H 126 H Respiratory Rate 43 H 45 H 42 H Respiratory Effort / Characteristics Respiratory Depth Blood Pressure 138/73 106/71 115/72 Blood Pressure [Left Arm] Blood Pressure Mean 94 82 86 Blood Pressure Mean [Left Arm] Pulse Oximetry 87 L 88 L 87 L Oxygen Delivery Method BiPAP Oxygen Flow Rate Fraction of Inspired Oxygen Sepsis Recent Fever Within 48 Hours Sepsis New/Unexplained Change in Mental Status Sepsis Action Taken by Nursing Pulse Oximetry Post Tiitration 06/07/20 11:38 06/07/20 11:40 06/07/20 11:46 Temperature Temperature Source Pulse Rate 166 H 165 H 165 H Pulse Rate [Apical] Pulse Rate from SpO2 Sensor 97 H 104 H Respiratory Rate 37 H 46 H 40 H Respiratory Effort / Characteristics Labored Short of Breath Respiratory Depth Shallow Blood Pressure 115/73 Blood Pressure [Left Arm] Blood Pressure Mean 87 Blood Pressure Mean [Left Arm] Pulse Oximetry 92 90 89 L Oxygen Delivery Method Oxygen Flow Rate Fraction of Inspired Oxygen 10 Sepsis Recent Fever Within 48 Hours Sepsis New/Unexplained Change in Mental Status Sepsis Action Taken by Nursing Pulse Oximetry Post Tiitration 06/07/20 11:50 06/07/20 11:54 06/07/20 12:00 Temperature Temperature Source Pulse Rate 175 H 175 H 98 H Pulse Rate [Apical] Pulse Rate from SpO2 Sensor 121 H 124 H 107 H Respiratory Rate 41 H 39 H 46 H Respiratory Effort / Characteristics Respiratory Depth Blood Pressure 103/75 122/82 Blood Pressure [Left Arm] Blood Pressure Mean 84 95 Blood Pressure Mean [Left Arm] Pulse Oximetry 90 90 86 L Oxygen Delivery Method Oxygen Flow Rate Fraction of Inspired Oxygen Sepsis Recent Fever Within 48 Hours Sepsis New/Unexplained Change in Mental Status Sepsis Action Taken by Nursing Pulse Oximetry Post Tiitration 06/07/20 12:10 06/07/20 12:16 06/07/20 12:20 Temperature Temperature Source Pulse Rate 98 H 99 H 102 H Pulse Rate [Apical] Pulse Rate from SpO2 Sensor 99 H 99 H 98 H Respiratory Rate 45 H 38 H 32 H Respiratory Effort / Characteristics Respiratory Depth Blood Pressure 120/78 Blood Pressure [Left Arm] Blood Pressure Mean 92 Blood Pressure Mean [Left Arm] Pulse Oximetry 92 89 L 92 Oxygen Delivery Method BiPAP Oxygen Flow Rate Fraction of Inspired Oxygen Sepsis Recent Fever Within 48 Hours Sepsis New/Unexplained Change in Mental Status Sepsis Action Taken by Nursing Pulse Oximetry Post Tiitration 06/07/20 12:30 06/07/20 12:31 Temperature Temperature Source Pulse Rate 99 H 100 H Pulse Rate [Apical] Pulse Rate from SpO2 Sensor 100 H 100 H Respiratory Rate 39 H 37 H Respiratory Effort / Characteristics Respiratory Depth Blood Pressure 131/84 Blood Pressure [Left Arm] Blood Pressure Mean 99 Blood Pressure Mean [Left Arm] Pulse Oximetry 92 93 Oxygen Delivery Method Oxygen Flow Rate Fraction of Inspired Oxygen Sepsis Recent Fever Within 48 Hours Sepsis New/Unexplained Change in Mental Status Sepsis Action Taken by Nursing Pulse Oximetry Post Tiitration Laboratory Data Result diagrams: 06/07/20 09:30 06/07/20 09:30 Lab Results 06/07/20 06/07/20 06/07/20 Range/Units 09:30 09:30 09:30 WBC 8.93 (4.8-10.8) K/uL RBC 3.91 L (4.7-6.1) M/uL Hgb 13.7 L (14.0-18.0) g/dL Hct 39.9 L (42-52) % MCV 102.0 H (80-100) fL MCH 35.0 H (25-34) pg MCHC 34.3 (32-36) g/dL RDW Std Deviation 55.7 H (36.4-46.3) fL RDW Coeff of Winter 14.9 H (11.5-14.5) % Plt Count 162 (130-400) K/uL MPV 10.5 H (7.4-10.4) fL Immature Gran % (Auto) 8.3 % Neut % (Auto) 89.4 % Lymph % (Auto) 1.5 % [place] % (Auto) 0.2 % Eos % (Auto) 0.4 % Baso % (Auto) 0.2 % Neut # (Auto) 7.98 H (1.4-6.5) K/uL Lymph # (Auto) 0.13 L (1.2-3.4) K/uL [place] # (Auto) 0.02 L (0.11-0.59) K/uL Eos # (Auto) 0.04 (0-0.5) K/uL Baso # (Auto) 0.02 (0-0.2) K/uL Immature Gran # (Auto) 0.74 H (0.00-0.02) K/uL Toxic Granulation 1+ Toxic Vacuolation 1+ Echinocytes 1+ PT (9.0-12.0) Seconds INR (0.9-1.1) APTT (21.0-31.0) Seconds PTT Ratio ABG pH (7.35-7.45) ABG pCO2 (35-46) mmHg ABG pO2 (80-95) mmHg ABG HCO3 (19-24) mmol/L ABG O2 Saturation (90-95) % ABG Base Excess (-9-1.8) mEq/L Dennis Test (Pos) Barometric Pressure mm/Hg Oxygen Given Sodium 136 (136-145) mmol/L Potassium 4.2 (3.5-5.1) mmol/L Chloride 104 (98-107) mmol/L Carbon Dioxide 22 (21-32) mmol/L Anion Gap 10.0 (3-11) BUN 53 H (7-18) mg/dl Creatinine 1.57 H (0.6-1.4) mg/dl Est Cr Clr Drug Dosing 35.7 ml/min Est GFR ( Amer) 47.2 Est GFR (Non-Af Amer) 40.7 BUN/Creatinine Ratio 33.9 H (10-20) Glucose 128 H (70-99) mg/dl Lactate (0.4-2.0) mmol/L Calcium 9.7 (8.5-10.1) mg/dl Magnesium 2.4 (1.8-2.4) mg/dl Total Bilirubin 0.8 (0.2-1) mg/dl AST 33 (15-37) U/L ALT 42 (12-78) U/L Alkaline Phosphatase 159 H (45-117) U/L Lactate Dehydrogenase (87-241) U/L Total Creatine Kinase (39-308) U/L Troponin I 0.106 H* (0-0.045) ng/ml C-Reactive Protein (0-0.29) mg/dl Total Protein 6.6 (6.4-8.2) gm/dl Albumin 2.3 L (3.4-5.0) gm/dl Globulin 4.3 H (2.5-4.0) gm/dl Albumin/Globulin Ratio 0.5 L (0.9-2) Procalcitonin 16.56 H (0-0.5) ng/ml TSH 0.420 (0.300-4.500) uIu/ml COVID-19 Eval Order SARS-CoV-2 (PCR) (Negative) Influenza Type A (PCR) (Neg) Influenza Type B (PCR) (Neg) RSV (RT-PCR) (Neg) 06/07/20 06/07/20 06/07/20 Range/Units 10:17 10:17 10:19 WBC (4.8-10.8) K/uL RBC (4.7-6.1) M/uL Hgb (14.0-18.0) g/dL Hct (42-52) % MCV (80-100) fL MCH (25-34) pg MCHC (32-36) g/dL RDW Std Deviation (36.4-46.3) fL RDW Coeff of Winter (11.5-14.5) % Plt Count (130-400) K/uL MPV (7.4-10.4) fL Immature Gran % (Auto) % Neut % (Auto) % Lymph % (Auto) % [place] % (Auto) % Eos % (Auto) % Baso % (Auto) % Neut # (Auto) (1.4-6.5) K/uL Lymph # (Auto) (1.2-3.4) K/uL [place] # (Auto) (0.11-0.59) K/uL Eos # (Auto) (0-0.5) K/uL Baso # (Auto) (0-0.2) K/uL Immature Gran # (Auto) (0.00-0.02) K/uL Toxic Granulation Toxic Vacuolation Echinocytes PT 11.0 (9.0-12.0) Seconds INR 1.1 (0.9-1.1) APTT 27.5 (21.0-31.0) Seconds PTT Ratio 1.0 ABG pH 7.33 L (7.35-7.45) ABG pCO2 36 (35-46) mmHg ABG pO2 75 L (80-95) mmHg ABG HCO3 18 L (19-24) mmol/L ABG O2 Saturation 95.2 H (90-95) % ABG Base Excess -6.9 (-9-1.8) mEq/L Dennis Test Pos (Pos) Barometric Pressure 730.2 mm/Hg Oxygen Given 90% Sodium (136-145) mmol/L Potassium (3.5-5.1) mmol/L Chloride (98-107) mmol/L Carbon Dioxide (21-32) mmol/L Anion Gap (3-11) BUN (7-18) mg/dl Creatinine (0.6-1.4) mg/dl Est Cr Clr Drug Dosing ml/min Est GFR ( Amer) Est GFR (Non-Af Amer) BUN/Creatinine Ratio (10-20) Glucose (70-99) mg/dl Lactate (0.4-2.0) mmol/L Calcium (8.5-10.1) mg/dl Magnesium (1.8-2.4) mg/dl Total Bilirubin (0.2-1) mg/dl AST (15-37) U/L ALT (12-78) U/L Alkaline Phosphatase (45-117) U/L Lactate Dehydrogenase 301 H (87-241) U/L Total Creatine Kinase (39-308) U/L Troponin I (0-0.045) ng/ml C-Reactive Protein (0-0.29) mg/dl Total Protein (6.4-8.2) gm/dl Albumin (3.4-5.0) gm/dl Globulin (2.5-4.0) gm/dl Albumin/Globulin Ratio (0.9-2) Procalcitonin (0-0.5) ng/ml TSH (0.300-4.500) uIu/ml COVID-19 Eval Order SARS-CoV-2 (PCR) (Negative) Influenza Type A (PCR) (Neg) Influenza Type B (PCR) (Neg) RSV (RT-PCR) (Neg) 06/07/20 06/07/20 06/07/20 Range/Units 10:19 11:15 11:15 WBC (4.8-10.8) K/uL RBC (4.7-6.1) M/uL Hgb (14.0-18.0) g/dL Hct (42-52) % MCV (80-100) fL MCH (25-34) pg MCHC (32-36) g/dL RDW Std Deviation (36.4-46.3) fL RDW Coeff of Winter (11.5-14.5) % Plt Count (130-400) K/uL MPV (7.4-10.4) fL Immature Gran % (Auto) % Neut % (Auto) % Lymph % (Auto) % [place] % (Auto) % Eos % (Auto) % Baso % (Auto) % Neut # (Auto) (1.4-6.5) K/uL Lymph # (Auto) (1.2-3.4) K/uL [place] # (Auto) (0.11-0.59) K/uL Eos # (Auto) (0-0.5) K/uL Baso # (Auto) (0-0.2) K/uL Immature Gran # (Auto) (0.00-0.02) K/uL Toxic Granulation Toxic Vacuolation Echinocytes PT (9.0-12.0) Seconds INR (0.9-1.1) APTT (21.0-31.0) Seconds PTT Ratio ABG pH (7.35-7.45) ABG pCO2 (35-46) mmHg ABG pO2 (80-95) mmHg ABG HCO3 (19-24) mmol/L ABG O2 Saturation (90-95) % ABG Base Excess (-9-1.8) mEq/L Dennis Test (Pos) Barometric Pressure mm/Hg Oxygen Given Sodium (136-145) mmol/L Potassium (3.5-5.1) mmol/L Chloride (98-107) mmol/L Carbon Dioxide (21-32) mmol/L Anion Gap (3-11) BUN (7-18) mg/dl Creatinine (0.6-1.4) mg/dl Est Cr Clr Drug Dosing ml/min Est GFR ( Amer) Est GFR (Non-Af Amer) BUN/Creatinine Ratio (10-20) Glucose (70-99) mg/dl Lactate (0.4-2.0) mmol/L Calcium (8.5-10.1) mg/dl Magnesium (1.8-2.4) mg/dl Total Bilirubin (0.2-1) mg/dl AST (15-37) U/L ALT (12-78) U/L Alkaline Phosphatase (45-117) U/L Lactate Dehydrogenase (87-241) U/L Total Creatine Kinase 45 (39-308) U/L Troponin I (0-0.045) ng/ml C-Reactive Protein > 19.00 H (0-0.29) mg/dl Total Protein (6.4-8.2) gm/dl Albumin (3.4-5.0) gm/dl Globulin (2.5-4.0) gm/dl Albumin/Globulin Ratio (0.9-2) Procalcitonin (0-0.5) ng/ml TSH (0.300-4.500) uIu/ml COVID-19 Eval Order [facility]FluRsv at [facility] SARS-CoV-2 (PCR) NEGATIVE (Negative) Influenza Type A (PCR) Negative (Neg) Influenza Type B (PCR) Negative (Neg) RSV (RT-PCR) Negative (Neg) 06/07/20 Range/Units 12:13 WBC (4.8-10.8) K/uL RBC (4.7-6.1) M/uL Hgb (14.0-18.0) g/dL Hct (42-52) % MCV (80-100) fL MCH (25-34) pg MCHC (32-36) g/dL RDW Std Deviation (36.4-46.3) fL RDW Coeff of Winter (11.5-14.5) % Plt Count (130-400) K/uL MPV (7.4-10.4) fL Immature Gran % (Auto) % Neut % (Auto) % Lymph % (Auto) % [place] % (Auto) % Eos % (Auto) % Baso % (Auto) % Neut # (Auto) (1.4-6.5) K/uL Lymph # (Auto) (1.2-3.4) K/uL [place] # (Auto) (0.11-0.59) K/uL Eos # (Auto) (0-0.5) K/uL Baso # (Auto) (0-0.2) K/uL Immature Gran # (Auto) (0.00-0.02) K/uL Toxic Granulation Toxic Vacuolation Echinocytes PT (9.0-12.0) Seconds INR (0.9-1.1) APTT (21.0-31.0) Seconds PTT Ratio ABG pH (7.35-7.45) ABG pCO2 (35-46) mmHg ABG pO2 (80-95) mmHg ABG HCO3 (19-24) mmol/L ABG O2 Saturation (90-95) % ABG Base Excess (-9-1.8) mEq/L Dennis Test (Pos) Barometric Pressure mm/Hg Oxygen Given Sodium (136-145) mmol/L Potassium (3.5-5.1) mmol/L Chloride (98-107) mmol/L Carbon Dioxide (21-32) mmol/L Anion Gap (3-11) BUN (7-18) mg/dl Creatinine (0.6-1.4) mg/dl Est Cr Clr Drug Dosing ml/min Est GFR ( Amer) Est GFR (Non-Af Amer) BUN/Creatinine Ratio (10-20) Glucose (70-99) mg/dl Lactate 3.8 H* (0.4-2.0) mmol/L Calcium (8.5-10.1) mg/dl Magnesium (1.8-2.4) mg/dl Total Bilirubin (0.2-1) mg/dl AST (15-37) U/L ALT (12-78) U/L Alkaline Phosphatase (45-117) U/L Lactate Dehydrogenase (87-241) U/L Total Creatine Kinase (39-308) U/L Troponin I (0-0.045) ng/ml C-Reactive Protein (0-0.29) mg/dl Total Protein (6.4-8.2) gm/dl Albumin (3.4-5.0) gm/dl Globulin (2.5-4.0) gm/dl Albumin/Globulin Ratio (0.9-2) Procalcitonin (0-0.5) ng/ml TSH (0.300-4.500) uIu/ml COVID-19 Eval Order SARS-CoV-2 (PCR) (Negative) Influenza Type A (PCR) (Neg) Influenza Type B (PCR) (Neg) RSV (RT-PCR) (Neg) Administered Medications Diltiazem HCl 125 mg/ Dextrose 125 mls @ 5 mls/hr IV .Q24H ABILIO; Protocol Stop: 07/07/20 10:59 Last Titration: 06/07/20 11:49 Dose: 10 mg/hr, 10 mls/hr Documented by: [id number] Cosigned by: [id number] Admin: 06/07/20 11:18 Dose: 5 mg/hr, 5 mls/hr Documented by: [id number] Cosigned by: [id number] Metoprolol Tartrate (Metoprolol Tartrate 1 Mg/Ml Vial) 5 mg IV, Q4 ABILIO Stop: 07/07/20 11:59 Last Admin: 06/07/20 16:19 Dose: Not Given Documented by: [id number] Admin: 06/07/20 15:43 Dose: Not Given Documented by: [id number] Discontinued Medications Digoxin (Digoxin 500 Mcg/2 Ml Amp) 500 mcg IV ONE ONE Stop: 06/07/20 11:48 Last Admin: 06/07/20 12:15 Dose: 500 mcg Documented by: [id number] Diltiazem HCl (Diltiazem Hcl 5 Mg/Ml 5 Ml Vial) 15 mg IV NOW STA Stop: 06/07/20 10:49 Last Admin: 06/07/20 11:19 Dose: 15 mg Documented by: [id number] Cosigned by: [id number] Fentanyl Citrate (Fentanyl Citrate 1250mcg/250ml Nss) Confirm Administered Dose 1,250 mcg IV .STK-MED ONE Stop: 06/07/20 14:40 Last Admin: 06/07/20 16:11 Dose: Not Given Documented by: [id number] Furosemide (Furosemide 40 Mg/4 Ml Vial) Confirm Administered Dose 40 mg IV .STK- MED ONE Stop: 06/07/20 09:36 Last Admin: 06/07/20 09:54 Dose: 40 mg Documented by: [id number] Cefepime HCl 2,000 mg/ Syringe 20 mls @ 5 mls/min IV NOW [facility]; Protocol Stop: 06/07/20 11:47 Last Admin: 06/07/20 12:25 Dose: 5 mls/min Documented by: [id number] Doxycycline Hyclate 100 mg/ (Dextrose) 110 mls @ 50 mls/hr IV NOW STA Stop: 06/07/20 13:56 Last Infusion: 06/07/20 16:20 Dose: 0 mls/hr Documented by: [id number] Admin: 06/07/20 13:11 Dose: 50 mls/hr Documented by: [id number] Vancomycin HCl 1,500 mg/ (Sodium Chloride) 530 mls @ 200 mls/hr IV NOW STA Stop: 06/07/20 14:33 Last Infusion: 06/07/20 16:20 Dose: 0 mls/hr Documented by: [id number] Admin: 06/07/20 12:30 Dose: 200 mls/hr Documented by: [id number] Heparin Sodium/Dextrose (Heparin Sodium/Dextrose) 25,000 units in 500 mls @ 25 mls/hr IV .Q20H ABILIO; Protocol Stop: 07/07/20 14:01 Last Admin: 06/07/20 16:09 Dose: Not Given Documented by: [id number] Propofol (Diprivan) 1,000 mg in 100 mls @ 8.208 mls/hr IV .[id number] ABILIO; Protocol Stop: 06/10/20 14:44 Last Admin: 06/07/20 14:45 Dose: 20 mcg/kg/min, 8.2 mls/hr Documented by: [id number] Cosigned by: [id number] Fentanyl Citrate (Fentanyl Drip) 1,250 mcg in 250 mls @ 5 mls/hr IV .Q50H ABILIO; Protocol Stop: 06/21/20 14:44 Last Admin: 06/07/20 14:45 Dose: 25 mcg/hr, 5 mls/hr Documented by: [id number] Cosigned by: [id number] Hydrocortisone Sodium (Succinate 50 mg/ Syringe) 1 mls @ 4 mls/min IV ONE ONE Stop: 06/07/20 15:16 Last Admin: 06/07/20 16:14 Dose: 4 mls/min Documented by: [id number] Phenylephrine HCl 20 mg/ (Dextrose) 502 mls @ 51.505 mls/hr IV .Q9H45M ABILIO; Protocol Stop: 07/07/20 15:44 Last Admin: 06/07/20 16:12 Dose: 0.5 mcg/kg/min, 51.5 mls/hr Documented by: [id number] Phenylephrine HCl 10 mg/ (Dextrose) 251 mls @ 51.505 mls/hr IV .Q4H53M STA; Protocol Stop: 06/07/20 19:44 Last Admin: 06/07/20 14:55 Dose: 0.5 mcg/kg/min, 51.5 mls/hr Documented by: [id number] Cosigned by: [id number] Ioversol (Optiray 320 125ml) 120 ml IV ONCE ONE Stop: 06/07/20 09:57 Last Admin: 06/07/20 09:58 Dose: 120 ml Documented by: [id number] Metoprolol Tartrate (Metoprolol Tartrate 1 Mg/Ml Vial) Confirm Administered Dose 10 mg IV .STK-MED ONE Stop: 06/07/20 09:33 Last Admin: 06/07/20 09:40 Dose: 10 mg Documented by: [id number] Metoprolol Tartrate (Metoprolol Tartrate 1 Mg/Ml Vial) Confirm Administered Dose 5 mg IV .STK-MED ONE Stop: 06/07/20 10:19 Last Admin: 06/07/20 10:23 Dose: 5 mg Documented by: [id number] Miscellaneous (Stat Iv Infusion Titration Per Protocol) 1 ea N/A NOW STA Stop: 06/07/20 10:49 Last Admin: 06/07/20 11:18 Dose: 1 ea Documented by: [id number] Miscellaneous (Rapid Sequence Induction Bag) Confirm Administered Dose 1 ea .ROUTE .STK-MED ONE Stop: 06/07/20 14:22 Last Admin: 06/07/20 16:09 Dose: 1 ea Documented by: [id number] Nitroglycerin (Nitroglycerin 2% Ointment 30gm Tube) Confirm Administered Dose 18 inch .ROUTE .STK-MED ONE Stop: 06/07/20 09:36 Last Admin: 06/07/20 09:54 Dose: Not Given Documented by: [id number] Nitroglycerin (Nitroglycerin 2% Ointment 30gm Tube) 0.5 inch EXT NOW STA Stop: 06/07/20 09:35 Last Admin: 06/07/20 09:54 Dose: 0.5 inch Documented by: [id number] Propofol (Propofol Iv Emulsion 10 Mg/Ml 100 Ml Vial) Confirm Administered Dose 1,000 mg IV .STK-MED ONE Stop: 06/07/20 14:28 Last Admin: 06/07/20 16:09 Dose: 1,000 mg Documented by: [id number] Cosigned by: [id number] Discharge Plan Visit Data Chief Complaint: Chest Pain Stated Complaint: CHEST PAIN ED Provider: Shantal Mcgrath Discharge Problem: Atrial fibrillation with rapid ventricular response, Congestive heart failure, Metastasis from breast cancer Patient Disposition: Admitted As Inpatient Discharge Instructions Interventions: ED Discharge Assessment Last Done: 06/07/20 13:23
[2020-06-07] MEDS: HYDROmorphone INJ 0.5 MG/0.5 ML SYR IV PRN ×3 (17:45→19:28)
[2020-06-07] MEDS ORDERED: fentaNYL citrate 100 MCG/2 ML VIAL IV ONE (19:47)
[2020-06-07] MEDS ORDERED: ETOMIDATE 2 MG/ML 20 ML VIAL IV ONE (19:47)
[2020-06-07] MEDS ORDERED: SUCCINYLCHOLINE CHLORIDE 20 MG/ML 10 ML VIAL IV ONE (19:47)
--- NOTE | 2020-06-07 19:54 | Death Pronouncement Note ---
Date of Service June 07, 2020 Pronouncement Note Admission Date Admission Date: June 07, 2020 Contributing Factors (1) Metastatic cancer: (2) Multifocal pneumonia: (3) Perforated abdominal viscus: (4) Sepsis: Summary Additional details: PRONOUNCEMENT NOTE - Date: 06/07/2020 Time: 1947 I was contacted by nursing staff regarding the patients declining status and concerns for imminent demise. In short, 79-year-old male with metastatic breast cancer presented to the hospital with acute hypoxic respiratory failure, A. fib RVR, sepsis, and p erforated viscus. Patient had been intubated previously today but was made comfort care by family and was terminally extubated with comfort measures. Patient at 194 this evening. Assessment: I presented to the patients room for evaluation. Upon assessment, the patient was found to be in a terminal state. Pupils were fixed and dilated without response. No palpable pulses appreciated. No spontaneous breaths noted. Heart sounds were absent. Time of : 1947 as pronounced by myself. No family at bedside at time of . The patient's was contacted and made aware by the RN. Patients primary service was contacted and made aware of patient demise. Pronouncement section of the Certificate was filled out and signed by myself. Cause of : Primary -acute hypoxic respiratory failure Secondary -septic shock, perforated viscus Contributing Causes of -metastatic breast cancer Please feel free to contact me with any questions regarding the above-mentioned course. Additional Data Attending physician: Yg Elkins MD Coding Level of Care Code None Diagnoses Metastatic cancer C78.00 Area of secondary neoplastic involvement: respiratory structure Laterality: unspecified laterality Respiratory structure secondary neoplasm location: metastatic to lung Multifocal pneumonia J18.9 Perforated abdominal viscus R19.8 Sepsis A41.9; R65.20; N17.9 Acute renal failure type: unspecified Sepsis acute organ dysfunction status: with acute organ dysfunction Sepsis type: sepsis due to unspecified organism Severe sepsis acute organ dysfunction type: acute renal failure Severe sepsis shock status: without septic shock
--- NOTE | 2020-06-07 20:54 | Discharge Summary ---
Date of Service June 07, 2020 Admission HPI Per Admitting Provider Carlos August is an 79-year-old male with metastatic breast cancer on Doxil who presents to the ER via EMS with fatigue, increasing shortness of breath for the last 3 days and with associated mild chest pain. His also notes he has been having a cough for the last month and went to see a pulmonology Dr Pool on May 17 and was given a course of prednisone which he finished without much change in his cough. She denies his cough has become any worse. No fevers or chills. With regards to his metastatic cancer he underwent mastectomy with adjuvant chemotherapy and radiation in 2006. Subsequently had 5 years of tamoxifen. Recently diagnosed metastatic cancer of the masses in his left breast were biopsied in September 2019. Started on Doxil in January after a cutaneous rash developed after Abraxane chemotherapy. Last dose of Doxil 06/01/2019. He has had 1 of 2 doses COVID-19 vaccination. In the ER he was noted to be in atrial fibrillation with rapid ventricular rate. This was treated with IV metoprolol and diltiazem with reduction of his heart rate from 190s down to 110s. Blood pressure remained stable. Suspected to be hypokalemic and given Lasix 40 mg IV and Nitropaste. He was significantly hypoxic and started on BiPAP 10/5 with FiO2 100% and O2 sats 90%. He was referred to medicine for atrial fibrillation with RVR, CHF, hypoxia on BiPAP. Admission Exam Per Admitting Provider Constitutional: + acute distress (Respiratory) and + ill appearing; + not well nourished Eyes: PERRL, conjunctivae normal, anicteric sclerae ENMT: Mouth: + dry oral mucous membranes Neck: trachea midline Respiratory: + respiratory distress, + labored breathing, + retractions, + uses accessory muscles and + tachypneic; expiratory phase not prolonged Auscultation: + rhonchi (Throughout); no wheezes Cardiovascular: Rate/Rhythm: + tachycardic and + irregularly irregular Heart Sounds: no murmur Vessels: no JVD Gastrointestinal (Abdomen): normal bowel sounds, soft, nontender, no hepatosplenomegaly Skin: no rashes, warm and dry (No areas of cellulitis) Neurologic: moves all extremities and awake; not confused Speech / Cognition: normal speech Psychiatric: A+Ox3, euthymic affect Principal Diagnosis Acute hypoxic respiratory failure Septic shock Multifocal pneumonia Perforated viscus Metastatic breast cancer Discharge Exam See admission exam. Patient was not examined after he . Discharge Data Allergies Allergy/AdvReac Type Severity Reaction Status Date / Time mold Allergy Intermediate HIVES Verified 06/07/20 10:31 pollen extracts Allergy Intermediate ITCHING Verified 06/07/20 10:31 No Known Drug Allergies Allergy Verified 06/07/20 10:31 Consultations 06/07/20 11:55 ED Decision to Admit Stat 06/07/20 12:28 Consult Spinning [employer] Changer Stat 06/07/20 14:02 Consult Case Management - Discharge Planning Routine 06/07/20 14:43 Consult Oncology Routine Ordered Studies 06/07/20 09:36 CT angio chest PE protocol Stat Hospital Course (1) Sepsis: Mr. August was admitted for atrial fibrillation with RVR and multifocal pneumonia with acute hypoxic respiratory failure on June 07, 2020. He was initially treated with BiPAP but quickly deteriorated on transfer to the intensive care unit where he wished to be intubated for potential reversible etiology but did not want prolonged treatment with ventilator. Unfortunately he subsequently developed a perforated viscus noted on repeat chest x-ray. Given this new diagnosis and per the patient's previous wishes and on discussion with his he was terminally extubated the same day of admission. He on comfort care the same day as admission on June 07, 2020. (2) Acute respiratory failure with hypoxia: (3) Multifocal pneumonia: (4) Atrial fibrillation with RVR: (5) Acute congestive heart failure: (6) Benign localized prostatic hyperplasia with lower urinary tract symptoms (LUTS): (7) Metastatic cancer: (8) Hydronephrosis: (9) Perforated abdominal viscus: Total Time Total Time Spent Total Time Spent (In Minutes): 20 Total Time Includes: Communication With Other Providers Discharge Plan Discharge Items Patient Disposition: Discharge Diagnosis: Acute respiratory failure with hypoxia, septic shock, perforated viscus, multifocal pneumonia, metastatic breast cancer Addtl Attending Provider Instructions: Patient was admitted for acute respiratory failure with hypoxia requiring intubation secondary to septic shock. Subsequently developed perforated viscus and continued to deteriorate. Patient was terminally extubated per his previous wishes and on discussion with his . Coding Level of Care Code None Diagnoses Sepsis A41.9; R65.20; N17.9 Sepsis type: sepsis due to unspecified organism Sepsis acute organ dysfunction status: with acute organ dysfunction Severe sepsis acute organ dysfunction type: acute renal failure Acute renal failure type: unspecified Severe sepsis shock status: without septic shock Acute respiratory failure with hypoxia J96.01 Multifocal pneumonia J18.9 Atrial fibrillation with RVR I48.91 Acute congestive heart failure I50.9 Benign localized prostatic hyperplasia with lower urinary tract symptoms (LUTS) N40.1 Metastatic cancer C78.00 Area of secondary neoplastic involvement: respiratory structure Respiratory structure secondary neoplasm location: metastatic to lung Laterality: unspecified laterality Hydronephrosis N13.30 Perforated abdominal viscus R19.8
[2020-06-07] MEDS ORDERED: DORZOLAMIDE/TIMOLOL 22.3/6.8MG/ML 10 ML BTL OPB SCH (21:00)
[2020-06-08] MEDS ORDERED: CEFEPIME 2,000 MG in SYRINGE 0 ML IV SCH
[2020-06-08] MEDS ORDERED: DOXYCYCLINE HYCLATE 100 MG in DEXTROSE 5% 100 ML IV SCH (02:00)
[2020-06-08] MEDS ORDERED: MULTIVITAMIN TAB PO SCH (09:00)
[2020-06-08] MEDS ORDERED: VITAMIN B COMPLEX TAB PO SCH (09:00)
[2020-06-08] MEDS ORDERED: TAMSULOSIN HCL 0.4 MG CAP PO SCH (09:00)
[2020-06-08] MEDS ORDERED: predniSONE 10 MG TABLET PO SCH (09:00)
[2020-06-08] MEDS ORDERED: CHOLECALCIFEROL 1,000 UNITS 25 MCG TAB PO SCH (09:00)
[2020-06-08] MEDS ORDERED: VANCOMYCIN HCL 1,000 MG in SODIUM CHLORIDE 0.9% 250 ML IV SCH (10:00)
== END 2020-06-07 19:48 | disposition expired ==
LOC: ED 09:26 → 1E 12:33